=== PATIENT | female | born 1970 | race Caucasian/White ===

== ENCOUNTER 2017-01-11 20:41 | Emergency (ER) | payer OTHER ==
[~2017-01-11 20:41] MED LIST: ACTO15TA OR; GLIM4TAB PO; IBUP600T OR; MELO15TA4 PO; VICO5TAB OR; VICO5TAB PO; Victoza SC
[2017-01-11] MEDS ORDERED: KETOROLAC 30 MG/ML VIAL (J1885) As Ordered ONE (21:25)
[2017-01-11] MEDS ORDERED: AMOXICILLIN 500 MG CAP As Ordered ONE (21:25)
[2017-01-11] MEDS ORDERED: MECLIZINE 12.5 MG TAB As Ordered ONE (21:25)
--- NOTE | 2017-01-11 22:41 | EDDOCDS ---
Physician Documentation [facility] Name: Elvira Newell Age: 46 yrs Sex: Female : 1970 Arrival Date: 01/11/2017 Time: 20:41 Bed PD Private MD: Anton Boss Disposition: 01/11/17 22:26 Discharged to Home/Self Care. Impression: Periapical abscess without sinus, Headache, Dizziness and giddiness. - Condition is Stable. - Discharge Instructions: Dental Abscess, Dizziness. - Prescriptions for Amoxicillin 500 mg Oral Capsule - take 1 capsule by ORAL route every 8 hours for 10 days; 30 tablet. ketorolac 10 mg Oral Tablet - take 1 tablet by ORAL route every 6 hours As needed MDD- 40mg. Up to 5 days total use.; 20 tablet. - Medication Reconciliation, Local Pharmacy Hours form. - Follow up: Your, Dentist; When: 1 - 2 days; Reason: Recheck today's complaints, Continuance of care. - Problem is new. - Symptoms have improved. - Notes: STOP MOTRIN, USE TORADOL AND AMOXICILLIN, YOU MAY ALSO USE TYLENOL, FOLLOW UP WITH YOUR DENTIST, RETURN TO THE ER IF THE SYMPTOMS WORSEN OR BECOME CONCERNING Historical: - Allergies: no known allergies; - Home Meds: 1. glimepiride 4 mg Oral tab 2 tab once daily (Last dose: 01/09/2017) 2. Ibuprofen Oral Unknown every 4 hours (Last dose: 01/11/2017 12:00) 3. Invokana 100 mg oral tab 1 tab once daily (Last dose: 01/09/2017) 4. phenermine 37.5 mg daily (Last dose: 01/09/2017) - PMHx: Diabetes - NIDDM: controlled; - PSHx: Hysterectomy; Appendectomy; Hemorrhoidectomy; Oophorectomy- Right; laproscopy; - Social history: Smoking status: Patient uses tobacco products, current some day smoker. Patient/guardian denies using alcohol, street drugs, No barriers to communication noted, The patient speaks fluent Bengali, Speaks appropriately for age. - Family history: No immediate family members are acutely ill. - : The pt / caregiver states he / she is not on anticoagulants. Home medication list is obtained from the patient. - Exposure Risk Screening:: None identified. 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 6 in. (167.64 cm); Pain 10/10; 21:16 BP 154 / 90 LA Sitting (man/lg); mcp 22:35 BP 151 / 80; Pulse 86; Resp 18; Pulse Ox 97% on R/A; Pain 8/10; nn1 22:36 Temp 97.8(O); nn1 20:42 Body Mass Index 33.73 (94.80 kg, 167.64 cm) sew MDM: 21:09 Accucheck ordered. ck7 21:13 Recheck B/P ordered. ck7 21:21 ketorolac 60 mg IM once ordered. ck7 21:21 Meclizine 25 mg PO once ordered. ck7 21:21 Amoxicillin 500 mg PO once ordered. ck7 21:21 Fingerstick Blood Sugar Ordered. EDMS 21:26 Fingerstick Blood Sugar Reviewed. ck7 21:50 Financial registration complete. zo 22:02 [facility] Payment Agreement was scanned into [employer] and attached to record. zo Point of Care Testing: Blood Glucose: 21:14 Blood Glucose: 170 mg/dL; mcp Ranges: Administered Medications: 21:31 Drug: ketorolac 60 mg [ketorolac 30 mg/mL (1 mL) injection solution (2 mL)] Route: IM; mcp Site: right deltoid; 21:31 Drug: Meclizine 25 mg [meclizine 12.5 mg tablet (2 tabs)] Route: PO; mcp 21:31 Drug: Amoxicillin 500 mg [amoxicillin 500 mg capsule (1 caps)] Route: PO; mcp Signatures: Dispatcher [employer] EDMS Cass Mazariegos Christopher, SHANNON-C RPA-Cck7 Jasmyn Gómez RN RN Erasmo Carmichael RN RN nn1 Violeta Mccormick RN [facility] The chart was reviewed and I authenticate all verbal orders and agree with the evaluation and treatment provided.Attachments: 22:02 [facility] [place] Agreement zo MTDD
--- NOTE | 2017-01-11 22:41 | EDDOCDS ---
Nurse's Notes [facility] Name: Elvira Newell Age: 46 yrs Sex: Female : 1970 Arrival Date: 01/11/2017 Time: 20:41 Bed PD Private MD: Anton Boss Diagnosis: Periapical abscess without sinus;Headache;Dizziness and giddiness Presentation: 01/11 20:46 Presenting complaint: Patient states: left lower molar pain since last night with ttb facial swelling. Adult Sepsis Screening: The patient does not have new or worsening altered mentation. Patient's respiratory rate is less than 22. Systolic blood pressure is greater than 100. Patient has a qSOFA score of 0- Negative Sepsis Screen. Suicide/Homicide risk assessment- the patient denies having any suicidal and/or homicidal ideations and does not present with any other emotional, behavioral or mental health complaints. Status: Patient is not a food service technician or dependent. Transition of care: patient was not received from another setting of care. 20:46 Acuity: ANDREWS Level 5 ttb 20:46 Method Of Arrival: Walkin/Carried/Asstd ttb Triage Assessment: 20:48 General: Appears in no apparent distress, uncomfortable, well nourished, Behavior is ttb appropriate for age, cooperative, flat, pleasant. Pain: Location: left mouth 10/10 into ear. HIV screening NA for this visit Offered previously. Neurological: Reports dizziness. EENT: Reports pain since yesterday. Respiratory: Airway is patent. GI: Reports nausea. Derm: Skin is normal, Swollen area noted on left cheek. 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 glimepiride 4 mg Oral tab 2 tab once daily (Last dose: 01/09/2017) 2. Ibuprofen Oral Unknown every 4 hours (Last dose: 01/11/2017 12:00) 3. Invokana 100 mg oral tab 1 tab once daily (Last dose: 01/09/2017) 4. phenermine 37.5 mg daily (Last dose: 01/09/2017) - PMHx: Diabetes - NIDDM: controlled; - PSHx: Hysterectomy; Appendectomy; Hemorrhoidectomy; Oophorectomy- Right; laproscopy; - Social history: Smoking status: Patient uses tobacco products, current some day smoker. Patient/guardian denies using alcohol, street drugs, No barriers to communication noted, The patient speaks fluent Latvian, Speaks appropriately for age. - Family history: No immediate family members are acutely ill. - : The pt / caregiver states he / she is not on anticoagulants. Home medication list is obtained from the patient. - Exposure Risk Screening:: None identified. Screenin:32 Screening information is obtained from the patient. Fall risk: No risks identified. mcp Assistance ADL's: requires no assistance with activities of daily living. Abuse/DV Screen: The patient / caregiver reports he/she is: not in a situation that causes fear, pain or injury. Nutritional screening: No deficits noted. Advance Directives: Currently, there is no health care proxy. There is no active DNR order. There is no Power of Technology Architect. home support is adequate. Assessment: 21:31 General: Appears uncomfortable, Behavior is cooperative. Pain: Location: left ear and mcp mouth Pain currently is 10 out of 10 on a pain scale. Neurological: Reports dizziness, headache. EENT: Reports pain in mouth Pain is 10 out of 10 on a pain scale. Respiratory: Airway is patent Respiratory effort is even, unlabored. Derm: Skin is pink, warm & dry. 22:09 General: Patient reports dizziness has improved, continues to have headache. Patient nn1 lying on stretcher with lights off. Provider notified of patients condition.. 22:26 General: States dizziness gone but headache remains. mcp 22:35 General: Appears in no apparent distress. Pain: Location: face Pain currently is 8 out nn1 of 10 on a pain scale. Respiratory: Airway is patent Respiratory effort is even, unlabored. Derm: Skin is pink, warm & dry. Vital Signs: 20:42 BP 172 / 97; Pulse 100; Resp 16; Temp 98.7(O); Pulse Ox 100% on R/A; Weight 94.8 kg; sew Height 5 ft. 6 in. (167.64 cm); Pain 10/10; 21:16 BP 154 / 90 LA Sitting (man/lg); mcp 22:35 BP 151 / 80; Pulse 86; Resp 18; Pulse Ox 97% on R/A; Pain 8/10; nn1 22:36 Temp 97.8(O); nn1 20:42 Body Mass Index 33.73 (94.80 kg, 167.64 cm) sew Vitals: 20:42 Log In Time: January 11, 2017 at 20:40. sew ED Course: 20:42 Patient visited by Adwoa Coleman. sew 20:42 Anton Boss is Private Physician. sew 20:42 Patient moved to Waiting sew 20:43 Patient visited by Adwoa Coleman. sew 20:43 Patient moved to Pre RCE sew 20:46 Triage Initiated ttb 20:49 Patient moved to Triage 2 ttb 20:51 Miguel Angel Brar RPA-C is PHCP. ck7 20:51 Logan Monson DO is Attending Physician. ck7 20:52 Patient visited by Miguel Angel Brar RPA-C. ck7 21:20 Patient moved to PD2 / rs6 21:26 Patient visited by Miguel Angel Brar RPA-C. ck7 21:32 The patient / caregiver is instructed regarding the plan of care and ED course. Patient mcp has correct armband on for positive identification. Bed in low position. Call light in reach. Adult w/ patient. 21:33 Patient visited by Violeta Mccormick RN. mcp 22:02 [facility] Payment Agreement was scanned into [employer] and attached to record. zo 22:09 Patient visited by Erasmo Parkinson RN. nn1 22:25 Julio Hsieht is Referral Physician. ck7 22:35 No IV's were initiated during this patient's visit. No procedures done that require nn1 assistance. Administered Medications: 21:31 Drug: ketorolac 60 mg [ketorolac 30 mg/mL (1 mL) injection solution (2 mL)] Route: IM; mcp Site: right deltoid; 21:31 Drug: Meclizine 25 mg [meclizine 12.5 mg tablet (2 tabs)] Route: PO; mcp 21:31 Drug: Amoxicillin 500 mg [amoxicillin 500 mg capsule (1 caps)] Route: PO; [facility] Point of Care Testing: Blood Glucose: 21:14 Blood Glucose: 170 mg/dL; [facility] Ranges: Order Results: Lab Order: Fingerstick Blood Sugar; SPEC'M 01/11/17 21:13 Test: BEDSIDE GLUCOSE; Value: 170; Range: 70-105; Abnormal: Above high normal; Units: MG/DL; Status: F Outcome: 22:26 Discharge ordered by Provider. ck7 22:38 Discharge Assessment: Patient awake, alert and oriented x 3. No cognitive and/or nn1 functional deficits noted. Patient verbalized understanding of disposition instructions. patient administered narcotics - no. The following High Risk Discharge criteria are identified: None. Discharged to home ambulatory, with family. Condition: stable Condition: improved. No special radiology studies were completed. Property :Personal belongings accompany Pt. 22:39 Patient left the ED. nn1 Signatures: Violeta Mccormick, RN RN Cass Ware Christopher, RPA-C RPA-Cck7 Adwoa Coleman Teresa RN RN Desiree Ortiz, MALATHI FENCE MAKING MACHINE OPERATOR rs6 Erasmo ParkinsonRN RN nn1 JOSE LUIS
--- NOTE | 2017-01-13 23:41 | EDDOCDS ---
Physician Documentation [facility] Name: Elvira Newell Age: 46 yrs Sex: Female : 1970 Arrival Date: 01/11/2017 Time: 20:41 Bed PD Private MD: Anton Boss Disposition: 01/11/17 22:26 Discharged to Home/Self Care. Impression: Periapical abscess without sinus, Headache, Dizziness and giddiness. - Condition is Stable. - Discharge Instructions: Dental Abscess, Dizziness. - Prescriptions for Amoxicillin 500 mg Oral Capsule - take 1 capsule by ORAL route every 8 hours for 10 days; 30 tablet. ketorolac 10 mg Oral Tablet - take 1 tablet by ORAL route every 6 hours As needed MDD- 40mg. Up to 5 days total use.; 20 tablet. - Medication Reconciliation, Local Pharmacy Hours form. - Follow up: Your, Dentist; When: 1 - 2 days; Reason: Recheck today's complaints, Continuance of care. - Problem is new. - Symptoms have improved. - Notes: STOP MOTRIN, USE TORADOL AND AMOXICILLIN, YOU MAY ALSO USE TYLENOL, FOLLOW UP WITH YOUR DENTIST, RETURN TO THE ER IF THE SYMPTOMS WORSEN OR BECOME CONCERNING Historical: - Allergies: no known allergies; - Home Meds: 1. glimepiride 4 mg Oral tab 2 tab once daily (Last dose: 01/09/2017) 2. Ibuprofen Oral Unknown every 4 hours (Last dose: 01/11/2017 12:00) 3. Invokana 100 mg oral tab 1 tab once daily (Last dose: 01/09/2017) 4. phenermine 37.5 mg daily (Last dose: 01/09/2017) - PMHx: Diabetes - NIDDM: controlled; - PSHx: Hysterectomy; Appendectomy; Hemorrhoidectomy; Oophorectomy- Right; laproscopy; - Social history: Smoking status: Patient uses tobacco products, current some day smoker. Patient/guardian denies using alcohol, street drugs, No barriers to communication noted, The patient speaks fluent Albanian, Speaks appropriately for age. - Family history: No immediate family members are acutely ill. - : The pt / caregiver states he / she is not on anticoagulants. Home medication list is obtained from the patient. - Exposure Risk Screening:: None identified. 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 6 in. (167.64 cm); Pain 10/10; 21:16 BP 154 / 90 LA Sitting (man/lg); mcp 22:35 BP 151 / 80; Pulse 86; Resp 18; Pulse Ox 97% on R/A; Pain 8/10; nn1 22:36 Temp 97.8(O); nn1 20:42 Body Mass Index 33.73 (94.80 kg, 167.64 cm) sew MDM: 21:09 Accucheck ordered. ck7 21:13 Recheck B/P ordered. ck7 21:21 ketorolac 60 mg IM once ordered. ck7 21:21 Meclizine 25 mg PO once ordered. ck7 21:21 Amoxicillin 500 mg PO once ordered. ck7 21:21 Fingerstick Blood Sugar Ordered. EDMS 21:26 Fingerstick Blood Sugar Reviewed. ck7 21:50 Financial registration complete. zo 22:02 [facility] Payment Agreement was scanned into [employer] and attached to record. zo 01/12 11:01 T-Sheet-- Draft Copy was scanned into [employer] and attached to record. Point of Care Testing: Blood Glucose: 01/11 21:14 Blood Glucose: 170 mg/dL; mcp Ranges: Administered Medications: 21:31 Drug: ketorolac 60 mg [ketorolac 30 mg/mL (1 mL) injection solution (2 mL)] Route: IM; mcp Site: right deltoid; 21:31 Drug: Meclizine 25 mg [meclizine 12.5 mg tablet (2 tabs)] Route: PO; mcp 21:31 Drug: Amoxicillin 500 mg [amoxicillin 500 mg capsule (1 caps)] Route: PO; [facility] Signatures: Dispatcher [employer] EDMS Fe Hahn, Reg Reg [place] Christopher, RPA-C RPA-Cck7 Jasmyn Gómez RN RN ttb Erasmo Parkinson RN RN nn1 Violeta Mccormick RN [facility] The chart was reviewed and I authenticate all verbal orders and agree with the evaluation and treatment provided.Attachments: 22:02 [facility] Payment Agreement zo 01/12 11:01 T-Sheet-- Draft Copy gb Chart Complete MTDD
--- NOTE | 2017-01-13 23:41 | EDDOCDS ---
Physician Documentation [facility] Name: Elvira Newell Age: 46 yrs Sex: Female : 1970 Arrival Date: 01/11/2017 Time: 20:41 Bed PD Private MD: Anton Boss Disposition: 01/11/17 22:26 Discharged to Home/Self Care. Impression: Periapical abscess without sinus, Headache, Dizziness and giddiness. - Condition is Stable. - Discharge Instructions: Dental Abscess, Dizziness. - Prescriptions for Amoxicillin 500 mg Oral Capsule - take 1 capsule by ORAL route every 8 hours for 10 days; 30 tablet. ketorolac 10 mg Oral Tablet - take 1 tablet by ORAL route every 6 hours As needed MDD- 40mg. Up to 5 days total use.; 20 tablet. - Medication Reconciliation, Local Pharmacy Hours form. - Follow up: Your, Dentist; When: 1 - 2 days; Reason: Recheck today's complaints, Continuance of care. - Problem is new. - Symptoms have improved. - Notes: STOP MOTRIN, USE TORADOL AND AMOXICILLIN, YOU MAY ALSO USE TYLENOL, FOLLOW UP WITH YOUR DENTIST, RETURN TO THE ER IF THE SYMPTOMS WORSEN OR BECOME CONCERNING Historical: - Allergies: no known allergies; - Home Meds: 1. glimepiride 4 mg Oral tab 2 tab once daily (Last dose: 01/09/2017) 2. Ibuprofen Oral Unknown every 4 hours (Last dose: 01/11/2017 12:00) 3. Invokana 100 mg oral tab 1 tab once daily (Last dose: 01/09/2017) 4. phenermine 37.5 mg daily (Last dose: 01/09/2017) - PMHx: Diabetes - NIDDM: controlled; - PSHx: Hysterectomy; Appendectomy; Hemorrhoidectomy; Oophorectomy- Right; laproscopy; - Social history: Smoking status: Patient uses tobacco products, current some day smoker. Patient/guardian denies using alcohol, street drugs, No barriers to communication noted, The patient speaks fluent Greek, Speaks appropriately for age. - Family history: No immediate family members are acutely ill. - : The pt / caregiver states he / she is not on anticoagulants. Home medication list is obtained from the patient. - Exposure Risk Screening:: None identified. 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 6 in. (167.64 cm); Pain 10/10; 21:16 BP 154 / 90 LA Sitting (man/lg); mcp 22:35 BP 151 / 80; Pulse 86; Resp 18; Pulse Ox 97% on R/A; Pain 8/10; nn1 22:36 Temp 97.8(O); nn1 20:42 Body Mass Index 33.73 (94.80 kg, 167.64 cm) sew MDM: 21:09 Accucheck ordered. ck7 21:13 Recheck B/P ordered. ck7 21:21 ketorolac 60 mg IM once ordered. ck7 21:21 Meclizine 25 mg PO once ordered. ck7 21:21 Amoxicillin 500 mg PO once ordered. ck7 21:21 Fingerstick Blood Sugar Ordered. EDMS 21:26 Fingerstick Blood Sugar Reviewed. ck7 21:50 Financial registration complete. zo 22:02 [facility] Payment Agreement was scanned into [employer] and attached to record. zo 01/12 11:01 T-Sheet-- Draft Copy was scanned into [employer] and attached to record. Point of Care Testing: Blood Glucose: 01/11 21:14 Blood Glucose: 170 mg/dL; mcp Ranges: Administered Medications: 21:31 Drug: ketorolac 60 mg [ketorolac 30 mg/mL (1 mL) injection solution (2 mL)] Route: IM; mcp Site: right deltoid; 21:31 Drug: Meclizine 25 mg [meclizine 12.5 mg tablet (2 tabs)] Route: PO; mcp 21:31 Drug: Amoxicillin 500 mg [amoxicillin 500 mg capsule (1 caps)] Route: PO; [facility] Signatures: Dispatcher [employer] EDMS Fe Hahn, Reg Reg [place] Christopher, RPA-C RPA-Cck7 Jasmyn Gómez RN RN ttb Erasmo Parkinson RN RN nn1 Violeta Mccormick RN [facility] The chart was reviewed and I authenticate all verbal orders and agree with the evaluation and treatment provided.Attachments: 22:02 [facility] Payment Agreement zo 01/12 11:01 T-Sheet-- Draft Copy gb Chart Complete MTDD
--- NOTE | 2017-01-13 23:41 | EDDOCDS ---
Nurse's Notes [facility] Name: Elvira Newell Age: 46 yrs Sex: Female : 1970 Arrival Date: 01/11/2017 Time: 20:41 Bed PD Private MD: Anton Bsos Diagnosis: Periapical abscess without sinus;Headache;Dizziness and giddiness Presentation: 01/11 20:46 Presenting complaint: Patient states: left lower molar pain since last night with ttb facial swelling. Adult Sepsis Screening: The patient does not have new or worsening altered mentation. Patient's respiratory rate is less than 22. Systolic blood pressure is greater than 100. Patient has a qSOFA score of 0- Negative Sepsis Screen. Suicide/Homicide risk assessment- the patient denies having any suicidal and/or homicidal ideations and does not present with any other emotional, behavioral or mental health complaints. 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 Transition of care: patient was not received from another setting of care. 20:46 Acuity: ANDREWS Level 5 ttb 20:46 Method Of Arrival: Walkin/Carried/Asstd ttb Triage Assessment: 20:48 General: Appears in no apparent distress, uncomfortable, well nourished, Behavior is ttb appropriate for age, cooperative, flat, pleasant. Pain: Location: left mouth 10/10 into ear. HIV screening NA for this visit Offered previously. Neurological: Reports dizziness. EENT: Reports pain since yesterday. Respiratory: Airway is patent. GI: Reports nausea. Derm: Skin is normal, Swollen area noted on left cheek. 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 glimepiride 4 mg Oral tab 2 tab once daily (Last dose: 01/09/2017) 2. Ibuprofen Oral Unknown every 4 hours (Last dose: 01/11/2017 12:00) 3. Invokana 100 mg oral tab 1 tab once daily (Last dose: 01/09/2017) 4. phenermine 37.5 mg daily (Last dose: 01/09/2017) - PMHx: Diabetes - NIDDM: controlled; - PSHx: Hysterectomy; Appendectomy; Hemorrhoidectomy; Oophorectomy- Right; laproscopy; - Social history: Smoking status: Patient uses tobacco products, current some day smoker. Patient/guardian denies using alcohol, street drugs, No barriers to communication noted, The patient speaks fluent Maori, Speaks appropriately for age. - Family history: No immediate family members are acutely ill. - : The pt / caregiver states he / she is not on anticoagulants. Home medication list is obtained from the patient. - Exposure Risk Screening:: None identified. Screenin:32 Screening information is obtained from the patient. Fall risk: No risks identified. mcp Assistance ADL's: requires no assistance with activities of daily living. Abuse/DV Screen: The patient / caregiver reports he/she is: not in a situation that causes fear, pain or injury. Nutritional screening: No deficits noted. Advance Directives: Currently, there is no health care proxy. There is no active DNR order. There is no Power of Stemhole Borer. home support is adequate. Assessment: 21:31 General: Appears uncomfortable, Behavior is cooperative. Pain: Location: left ear and mcp mouth Pain currently is 10 out of 10 on a pain scale. Neurological: Reports dizziness, headache. EENT: Reports pain in mouth Pain is 10 out of 10 on a pain scale. Respiratory: Airway is patent Respiratory effort is even, unlabored. Derm: Skin is pink, warm & dry. 22:09 General: Patient reports dizziness has improved, continues to have headache. Patient nn1 lying on stretcher with lights off. Provider notified of patients condition.. 22:26 General: States dizziness gone but headache remains. mcp 22:35 General: Appears in no apparent distress. Pain: Location: face Pain currently is 8 out nn1 of 10 on a pain scale. Respiratory: Airway is patent Respiratory effort is even, unlabored. Derm: Skin is pink, warm & dry. Vital Signs: 20:42 BP 172 / 97; Pulse 100; Resp 16; Temp 98.7(O); Pulse Ox 100% on R/A; Weight 94.8 kg; sew Height 5 ft. 6 in. (167.64 cm); Pain 10/10; 21:16 BP 154 / 90 LA Sitting (man/lg); mcp 22:35 BP 151 / 80; Pulse 86; Resp 18; Pulse Ox 97% on R/A; Pain 8/10; nn1 22:36 Temp 97.8(O); nn1 20:42 Body Mass Index 33.73 (94.80 kg, 167.64 cm) sew Vitals: 20:42 Log In Time: January 11, 2017 at 20:40. sew ED Course: 20:42 Patient visited by Adwoa Coleman. sew 20:42 Anton Boss is Private Physician. sew 20:42 Patient moved to Waiting sew 20:43 Patient visited by Adwoa Coleman. sew 20:43 Patient moved to Pre RCE sew 20:46 Triage Initiated ttb 20:49 Patient moved to Triage 2 ttb 20:51 Miguel Angel Brar RPA-C is PHCP. ck7 20:51 Logan Monson DO is Attending Physician. ck7 20:52 Patient visited by Miguel Angel Brar RPA-C. ck7 21:20 Patient moved to PD2 / rs6 21:26 Patient visited by Miguel Angel Brar RPA-C. ck7 21:32 The patient / caregiver is instructed regarding the plan of care and ED course. Patient mcp has correct armband on for positive identification. Bed in low position. Call light in reach. Adult w/ patient. 21:33 Patient visited by Violeta Mccormick RN. mcp 22:02 [facility] Payment Agreement was scanned into [employer] and attached to record. zo 22:09 Patient visited by Erasmo Parkinson RN. nn1 22:25 Julio Hsieht is Referral Physician. ck7 22:35 No IV's were initiated during this patient's visit. No procedures done that require nn1 assistance. 01/12 11:01 T-Sheet-- Draft Copy was scanned into [employer] and attached to record. gb Administered Medications: 01/11 21:31 Drug: ketorolac 60 mg [ketorolac 30 mg/mL (1 mL) injection solution (2 mL)] Route: IM; [facility] Site: right deltoid; 21:31 Drug: Meclizine 25 mg [meclizine 12.5 mg tablet (2 tabs)] Route: PO; mcp 21:31 Drug: Amoxicillin 500 mg [amoxicillin 500 mg capsule (1 caps)] Route: PO; [facility] Point of Care Testing: Blood Glucose: 21:14 Blood Glucose: 170 mg/dL; [facility] Ranges: Order Results: Lab Order: Fingerstick Blood Sugar; SPEC'M 01/11/17 21:13 Test: BEDSIDE GLUCOSE; Value: 170; Range: 70-105; Abnormal: Above high normal; Units: MG/DL; Status: F Outcome: 22:26 Discharge ordered by Provider. ck7 22:38 Discharge Assessment: Patient awake, alert and oriented x 3. No cognitive and/or nn1 functional deficits noted. Patient verbalized understanding of disposition instructions. patient administered narcotics - no. The following High Risk Discharge criteria are identified: None. Discharged to home ambulatory, with family. Condition: stable Condition: improved. No special radiology studies were completed. Property :Personal belongings accompany Pt. 22:39 Patient left the ED. nn1 Signatures: Violeta Mccormick, RN RN Fe Armenta, Cass Schultz Christopher, RPA-C RPA-Cck7 Adwoa Coleman Teresa, RN RN Desiree Ortiz, MALATHI PERMACULTURE DESIGNER rs6 Erasmo ParkinsonRN RN nn1 Chart Complete MTDD
== END 2017-01-11 22:39 | disposition home or self-care (01) ==
LOC: M ED 20:41
DX: K04.7 Periapical abscess without sinus (principal); E11.9 Type 2 diabetes mellitus without complications; Z72.0 Tobacco use; Z79.899 Other long term (current) drug therapy
CPT/HCPCS: 96372; 99283; J1885

== ENCOUNTER → 2017-04-04 | Outpatient (CLI) | payer OTHER ==
[2017-04-04 19:38] LABS: ALBUMIN 3.8 GM/DL (3.2-5.2); ALBUMIN/GLOBULIN RATIO 0.97 (1.00-1.93); ALKALINE PHOSPHATASE 62 U/L (45-117); ALT/SGPT 31 U/L (12-78); ANION GAP 9 MEQ/L (8-16); AST/SGOT 12 U/L (15-37); BILIRUBIN,TOTAL 0.2 MG/DL (0.2-1.0); BLOOD UREA NITROGEN 12 MG/DL (7-18); CARBON DIOXIDE LEVEL 29 MEQ/L (21-32); CHLORIDE LEVEL 102 MEQ/L (98-107); GLOMERULAR FILTRATION RATE > 60.0 (>58); GLUCOSE, FASTING 126 MG/DL (70-105); POTASSIUM SERUM 4.3 MEQ/L (3.5-5.1); SODIUM LEVEL 140 MEQ/L (136-145); TOTAL PROTEIN 7.7 GM/DL (6.4-8.2)
== END ==
LOC: M WUC 16:15
PROVIDERS: ATTEND Nurse Practitioner Family
DX: E11.9 Type 2 diabetes mellitus without complications (principal); E66.09 Other obesity due to excess calories

== ENCOUNTER → 2017-09-24 | Outpatient (CLI) | payer OTHER ==
[2017-09-24 19:42] LABS: BASO # 0.1 10^3/uL (0.0-0.2); BASO % 0.6 % (0.0-1.0); EOS # 0.1 10^3/uL (0.0-0.50); EOS % 1.4 % (0.0-3.0); IMMATURE GRANULOCYTE % 0.2 % (0-0); LYMPH # 3.4 10^3/uL (1.5-4.5); LYMPH % 34.2 % (24.0-44.0); MEAN CORPUSCULAR HEMOGLOBIN 28.8 pg (27.0-33.0); MEAN CORPUSCULAR HGB CONC 32.1 g/dl (32.0-36.5); MEAN CORPUSCULAR VOLUME 89.7 fl (80.0-96.0); MONO # 0.7 10^3/uL (0.0-0.8); MONO % 6.7 % (0.0-5.0); NEUTROPHILS # 5.6 10^3/uL (1.8-7.7); NEUTROPHILS % 56.9 % (36.0-66.0); PLATELET COUNT, AUTOMATED 264 10^3/uL (150-450); RED CELL DISTRIBUTION WIDTH 13.4 % (11.5-14.5); WHITE BLOOD COUNT 9.8 10^3/uL (4.0-10.0)
[2017-09-24 20:00] LABS: ALBUMIN/GLOBULIN RATIO 1.08 (1.00-1.93); ALKALINE PHOSPHATASE 57 U/L (45-117); ALT/SGPT 33 U/L (12-78); ANION GAP 9 MEQ/L (8-16); AST/SGOT 12 U/L (15-37); BILIRUBIN,TOTAL 0.3 MG/DL (0.2-1.0); BLOOD UREA NITROGEN 15 MG/DL (7-18); CALCIUM LEVEL 9.2 MG/DL (8.5-10.1); CARBON DIOXIDE LEVEL 28 MEQ/L (21-32); CHLORIDE LEVEL 103 MEQ/L (98-107); CREATININE FOR GFR 0.69 MG/DL (0.55-1.02); FREE T4 0.98 NG/DL (0.76-1.46); GLOMERULAR FILTRATION RATE > 60.0 (>58); GLUCOSE, FASTING 72 MG/DL (70-105); POTASSIUM SERUM 4.4 MEQ/L (3.5-5.1); SODIUM LEVEL 140 MEQ/L (136-145); TOTAL PROTEIN 7.7 GM/DL (6.4-8.2)
== END ==
LOC: M WUC 15:40
PROVIDERS: ATTEND Nurse Practitioner Family
DX: E11.9 Type 2 diabetes mellitus without complications (principal); E66.09 Other obesity due to excess calories

== ENCOUNTER 2017-12-19 08:04 | Day surgery (SDC) | payer OTHER ==
[2017-12-19] MEDS ORDERED: NS 1,000 ML IV (08:45)
[2017-12-19] MEDS ORDERED: PROPOFOL 500 MG/50 ML VIAL As Ordered (09:31)
[2017-12-19] MEDS ORDERED: LIDOCAINE 2% INJ 100 MG/5 ML SYRINGE As Ordered (09:31)
== END 2017-12-19 10:15 | disposition home or self-care (01) ==
LOC: M OPP 08:04
DX: R10.32 Left lower quadrant pain (principal); K62.5 Hemorrhage of anus and rectum; D12.5 Benign neoplasm of sigmoid colon; D12.2 Benign neoplasm of ascending colon; K64.8 Other hemorrhoids; R19.4 Change in bowel habit; E11.9 Type 2 diabetes mellitus without complications; G47.30 Sleep apnea, unspecified; M19.90 Unspecified osteoarthritis, unspecified site; Z79.899 Other long term (current) drug therapy; Z90.49 Acquired absence of other specified parts of digestive tract; Z90.89 Acquired absence of other organs; Z90.722 Acquired absence of ovaries, bilateral; Z87.19 Personal history of other diseases of the digestive system; Z87.891 Personal history of nicotine dependence
CPT/HCPCS: 45385

== ENCOUNTER → 2018-02-19 | Outpatient (CLI) | payer OTHER ==
[2018-02-19 16:45] LABS: ESTIMATED AVERAGE GLUCOSE 163 MG/DL (60-110); HEMOGLOBIN A1c 7.3 %
[2018-02-19 17:07] LABS: ERYTHROCYTE SEDIMENTATION RATE 18 mm/hr (0-20)
[2018-02-19 17:13] LABS: ALBUMIN 3.9 GM/DL (3.2-5.2); ALBUMIN/GLOBULIN RATIO 0.98 (1.00-1.93); ALKALINE PHOSPHATASE 61 U/L (45-117); ALT/SGPT 26 U/L (12-78); ANION GAP 7 MEQ/L (8-16); AST/SGOT 13 U/L (7-37); BILIRUBIN,TOTAL 0.2 MG/DL (0.2-1.0); BLOOD UREA NITROGEN 15 MG/DL (7-18); CALCIUM LEVEL 8.8 MG/DL (8.5-10.1); CARBON DIOXIDE LEVEL 28 MEQ/L (21-32); CHLORIDE LEVEL 106 MEQ/L (98-107); CREATININE FOR GFR 0.67 MG/DL (0.55-1.30); GLOMERULAR FILTRATION RATE > 60.0 (>58); GLUCOSE, FASTING 81 MG/DL (70-100); POTASSIUM SERUM 4.3 MEQ/L (3.5-5.1); SODIUM LEVEL 141 MEQ/L (136-145); TOTAL PROTEIN 7.9 GM/DL (6.4-8.2)
[2018-02-21 14:15] LABS: ANTINUCLEAR ANTIBODIES DIRECT Negative (Negative)
== END ==
LOC: M WUC 14:10
DX: M15.8 Other polyosteoarthritis (principal); E11.9 Type 2 diabetes mellitus without complications
CPT/HCPCS: 80053

== ENCOUNTER → 2018-06-23 | Outpatient (CLI) | payer OTHER | LOC: M WUC 18:42 | DX: M51.34 Other intervertebral disc degeneration, thoracic region (principal); M51.36 Other intervertebral disc degeneration, lumbar region | CPT/HCPCS: 72072 ==

== ENCOUNTER → 2019-11-20 | Outpatient (CLI) | payer OTHER ==
[~2019-11-20] MED LIST changes: -GLIM4TAB PO; +GLIM4TAB3 PO; +INVO100T PO; +MELO15TA28 PO; -MELO15TA4 PO; +PHEN30CA2 PO
--- NOTE | 2019-11-20 18:32 | REP ---
HISTORY: Trauma. COMPARISON: None. Plain film examination of the cervical spine cannot rule out a fracture. Vertebral body height and alignment is within normal limits. The disc spaces are symmetric and well maintained. The intervertebral foramina are within normal limits bilaterally. The facet joints are well aligned bilaterally. IMPRESSION: Cervical spine series within normal limits for the patient's age. A plain film examination cannot rule out a cervical spine fracture. CT is recommended. Electronically Signed by Jordy Estrella DO 11/20/2019 06:56 P
--- NOTE | 2019-11-20 18:34 | REP ---
HISTORY: Pain after trauma. Assess for fracture. The exam is limited by technique and the patient's body habitus. There is disc space narrowing moderately at every level. There is syndesmophyte formation seen bilaterally involving the lower thoracic levels and on the right throughout ending at T10-11. Vertebral body height and alignment is within normal limits. The pedicles appear to be intact bilaterally. IMPRESSION: Chronic changes as described above. There is no plain radiographic evidence of an acute fracture. Electronically Signed by Jordy Estrella DO 11/20/2019 06:56 P
--- NOTE | 2019-11-20 18:57 | REP ---
HISTORY: Pain after trauma. COMPARISON: A limited three view examination of 06/23/2018. Vertebral body height and alignment is unchanged. Minimal partial syndesmophyte formation is seen at L3-4, status quo. The pedicles are intact bilaterally. There is no evidence of spondylolysis or spondylolisthesis. There is mild posterior disc space narrowing at every level, status quo. IMPRESSION: Mild chronic changes as described above. Electronically Signed by Jordy Estrella DO 11/20/2019 07:34 P
== END ==
LOC: M WUC 16:52
PROVIDERS: ATTEND Physician Assistant
DX: M25.78 Osteophyte, vertebrae (principal); M48.061 Spinal stenosis, lumbar region without neurogenic claudication; M48.04 Spinal stenosis, thoracic region; S30.0XXA Contusion of lower back and pelvis, initial encounter; S16.1XXA Strain of muscle, fascia and tendon at neck level, initial encounter; S20.221A Contusion of right back wall of thorax, initial encounter; Y92.9 Unspecified place or not applicable; Y93.9 Activity, unspecified; Y99.9 Unspecified external cause status

== ENCOUNTER 2020-07-13 02:30 | Emergency (ER) | payer OTHER ==
[~2020-07-13 02:30] MED LIST changes: -GLIM4TAB3 PO; +GLIM4TAB5 PO
[2020-07-14] MEDS ORDERED: KETOROLAC 60MG 2ML VIAL As Ordered ONE (04:11)
[2020-07-14] MEDS ORDERED: KETOROLAC 60MG 2ML VIAL ONE (04:11)
[2020-07-14] MEDS ORDERED: AUGMENTIN 875 MG TAB As Ordered ONE (04:11)
[2020-07-14] MEDS ORDERED: AUGMENTIN 875 MG TAB ONE (04:11)
[2020-07-14] MEDS ORDERED: ONDANSETRON 4 MG ORAL DISINTEGRATING TAB ONE (04:11)
[2020-07-14] MEDS ORDERED: OXYCODONE/APAP 5MG/325MG(BULK FOR ED) 1 TABLET ONE (04:11)
[2020-07-14] MEDS ORDERED: OXYCODONE/APAP 5MG/325MG(BULK FOR ED) 1 TABLET As Ordered ONE (04:12)
[2020-07-14] MEDS ORDERED: ONDANSETRON 4 MG ORAL DISINTEGRATING TAB As Ordered ONE (04:12)
== END 2020-07-14 03:40 | disposition home or self-care (01) ==
LOC: M ED 02:30
DX: K08.89 Other specified disorders of teeth and supporting structures (principal); R68.84 Jaw pain; E11.9 Type 2 diabetes mellitus without complications; Z79.899 Other long term (current) drug therapy
CPT/HCPCS: 96372; 99283; J1885; Q0162

== ENCOUNTER → 2020-08-24 | Outpatient (REF) | payer OTHER ==
[2020-08-24 18:25] LABS: BASO # 0.1 10^3/uL (0.0-0.2); BASO % 0.7 % (0.0-1.0); EOS # 0.1 10^3/uL (0.0-0.5); EOS % 1.3 % (0.0-3.0); HEMATOCRIT 42.9 % (36.0-47.0); HEMOGLOBIN 14.3 g/dl (12.0-15.5); LYMPH # 3.7 10^3/uL (1.5-5.0); LYMPH % 36.8 % (24.0-44.0); MEAN CORPUSCULAR HEMOGLOBIN 30.4 pg (27.0-33.0); MEAN CORPUSCULAR HGB CONC 33.3 g/dl (32.0-36.5); MEAN CORPUSCULAR VOLUME 91.3 fl (80.0-96.0); MONO # 0.6 10^3/uL (0.0-0.8); NEUTROPHILS # 5.5 10^3/uL (1.5-8.5); NEUTROPHILS % 54.9 % (36.0-66.0); PLATELET COUNT, AUTOMATED 254 10^3/uL (150-450); WHITE BLOOD COUNT 10.1 10^3/uL (4.0-10.0)
[2020-08-24 18:53] LABS: ALT/SGPT 48 U/L (12-78); BILIRUBIN,TOTAL 0.5 MG/DL (0.2-1.0); BLOOD UREA NITROGEN 10 MG/DL (7-18); CALCIUM LEVEL 9.3 MG/DL (8.5-10.1); CARBON DIOXIDE LEVEL 27 MEQ/L (21-32); CHLORIDE LEVEL 102 MEQ/L (98-107); CREATININE FOR GFR 0.76 MG/DL (0.55-1.30); FREE T4 0.97 NG/DL (0.76-1.46); GLOMERULAR FILTRATION RATE > 60.0 (>51); GLUCOSE, FASTING 295 MG/DL (70-100); SODIUM LEVEL 135 MEQ/L (136-145); THYROID STIMULATING HORMONE 0.538 uIU/ML (0.358-3.740); TOTAL PROTEIN 8.1 GM/DL (6.4-8.2)
[2020-08-24 18:55] LABS: TOTAL 25(OH) VITAMIN D 18.9 NG/ML (30.0-100.0)
== END ==
LOC: M LAB REF 17:31
PROVIDERS: ATTEND Physician Assistant
DX: R53.83 Other fatigue (principal); E11.9 Type 2 diabetes mellitus without complications

== ENCOUNTER → 2020-09-06 | Outpatient (REF) | payer OTHER ==
[2020-09-06 18:59] LABS: ALBUMIN 3.8 GM/DL (3.2-5.2); ALT/SGPT 50 U/L (12-78); BILIRUBIN,TOTAL 0.6 MG/DL (0.2-1.0); BLOOD UREA NITROGEN 12 MG/DL (7-18); CALCIUM LEVEL 9.1 MG/DL (8.5-10.1); CARBON DIOXIDE LEVEL 29 MEQ/L (21-32); CHLORIDE LEVEL 103 MEQ/L (98-107); CHOLESTEROL LEVEL 191 MG/DL (<200); CHOLESTEROL RISK RATIO 5.617 (<5); CREATININE FOR GFR 0.77 MG/DL (0.55-1.30); GLOMERULAR FILTRATION RATE > 60.0 (>51); GLUCOSE, FASTING 291 MG/DL (70-100); HDL CHOLESTEROL 34 MG/DL (>40); LDL CHOLESTEROL 103 MG/DL (<100); NON-HDL-C 157 MG/DL; SODIUM LEVEL 137 MEQ/L (136-145); TOTAL PROTEIN 7.6 GM/DL (6.4-8.2); TRIGLYCERIDES LEVEL 268 MG/DL (<150)
== END ==
LOC: M LAB REF 17:47
PROVIDERS: ATTEND Physician Assistant
DX: E11.9 Type 2 diabetes mellitus without complications (principal); Z68.34 Body mass index [BMI] 34.0-34.9, adult

== ENCOUNTER → 2020-09-29 | Outpatient (CLI) | payer OTHER ==
--- NOTE | 2020-09-29 14:16 | REPMRS ---
Patient History The patient states she has not had a clinical breast exam in over a year. No known family history of cancer. 3D TOMOSYNTHESIS WAS PERFORMED. [facility] lifetime risk for breast cancer is 7.5%. Volpara breast density b. Digital Woman Screen Mammo: September 29, 2020 - Exam #: [id number] Bilateral CC and MLO view(s) were taken. Technologist: Peace Jernoimo, Technologist Prior study comparison: January 04, 2015, bilateral digital mammo screening bilat, performed at [facility]. FINDINGS: There are scattered fibroglandular densities. There has been no change in the appearance of the mammogram from the prior studies. There is a mild amount of residual fibroglandular tissue which is fairly symmetric. There is no interval development of dominant mass, architectural distortion, or clustered microcalcification suggestive of malignancy. Assessment: BI-RADS/ACR category 1 mammogram. Negative Mammogram. Recommendation Routine screening mammogram in 1 year (for women over age 40). This mammogram was interpreted with the aid of an FDA-approved computer-aided dectection system. Electronically Signed By: Howard Osman MD 09/29/20 [id number]
== END ==
LOC: M WHC 12:57
PROVIDERS: ATTEND Physician Assistant
DX: Z12.31 Encounter for screening mammogram for malignant neoplasm of breast (principal)

== ENCOUNTER → 2020-10-13 | Outpatient (REF) | payer OTHER, MEDICAID ==
[2020-10-13 16:59] LABS: BLOOD UREA NITROGEN 13 MG/DL (7-18); CALCIUM LEVEL 9.6 MG/DL (8.5-10.1); CARBON DIOXIDE LEVEL 30 MEQ/L (21-32); CHLORIDE LEVEL 103 MEQ/L (98-107); GLOMERULAR FILTRATION RATE > 60.0 (>51); GLUCOSE, FASTING 218 MG/DL (70-100); POTASSIUM SERUM 4.4 MEQ/L (3.5-5.1); SODIUM LEVEL 140 MEQ/L (136-145)
== END ==
LOC: M LAB REF 16:28
PROVIDERS: ATTEND Physician Assistant
DX: E11.65 Type 2 diabetes mellitus with hyperglycemia (principal)

== ENCOUNTER → 2021-01-18 | Outpatient (CLI) | payer OTHER, MEDICAID ==
[2021-01-18 16:13] LABS: HEMATOCRIT 44.2 % (36.0-47.0); HEMOGLOBIN 14.3 g/dl (12.0-15.5); MEAN CORPUSCULAR HEMOGLOBIN 30.2 pg (27.0-33.0); MEAN CORPUSCULAR HGB CONC 32.4 g/dl (32.0-36.5); MEAN CORPUSCULAR VOLUME 93.4 fl (80.0-96.0); PLATELET COUNT, AUTOMATED 259 10^3/uL (150-450); RED BLOOD COUNT 4.73 10^6/uL (4.00-5.40); WHITE BLOOD COUNT 8.6 10^3/uL (4.0-10.0)
[2021-01-18 16:37] LABS: ALT/SGPT 58 U/L (12-78); BILIRUBIN,TOTAL 0.4 MG/DL (0.2-1.0); BLOOD UREA NITROGEN 12 MG/DL (7-18); CALCIUM LEVEL 10.1 MG/DL (8.5-10.1); CARBON DIOXIDE LEVEL 28 MEQ/L (21-32); CHLORIDE LEVEL 103 MEQ/L (98-107); CREATININE FOR GFR 0.86 MG/DL (0.55-1.30); GLOMERULAR FILTRATION RATE > 60.0 (>51); GLUCOSE, FASTING 255 MG/DL (70-100); POTASSIUM SERUM 4.7 MEQ/L (3.5-5.1); SODIUM LEVEL 139 MEQ/L (136-145); TOTAL PROTEIN 7.9 GM/DL (6.4-8.2)
[2021-01-18 16:51] LABS: MALB URINE SIEMENS 67.2 MG/L; MAU/CREAT RATIO 22.8 MCG/MG (0.0-30.0)
[2021-01-18 17:12] LABS: HEMOGLOBIN A1c 11.4 %
[2021-01-20 13:10] LABS: Lyme Disease IgG/IgM Antibodie <0.91 ISR (0.00-0.90); Lyme Disease IgM Ab Quantitati <0.80 index (0.00-0.79)
== END ==
LOC: M WUC 12:03
PROVIDERS: ATTEND Physician Assistant
DX: E11.65 Type 2 diabetes mellitus with hyperglycemia (principal); W57.XXXD Bitten or stung by nonvenomous insect and other nonvenomous arthropods, subsequent encounter

== ENCOUNTER → 2021-02-07 | Outpatient (CLI) | payer OTHER ==
[~2021-02-07] MED LIST changes: +E-Z-GAS II EFFERVESCENT PACKET (SODIUM BICARB./CITRIC ACID/SIMETHICONE) As Ordered ONE; +E-Z-HD 98% w/w 340GM SUSP BTL As Ordered ONE; +E-Z-PAQUE 96% w/w SUSP 176GM BTL As Ordered ONE
--- NOTE | 2021-02-07 16:16 | REP ---
INDICATION: DYSPHAGIA. COMPARISON: None TECHNIQUE: This procedure was performed by Desiree Schaefer [facility], under the direct supervision of Dr. Osman. Images were reviewed with Dr. Osman prior to dictation. Liquid barium and gas producing crystals were given in the erect position, as well as liquid barium in the prone oblique position in order to perform a double contrast esophagram examination. FINDINGS: A single view PA chest x-ray is submitted as a flow coordinator film. The superior mediastinal structures are midline. The heart size is within normal limits. The lungs are clear. The oral and pharyngeal stages of deglutition were unremarkable. However tertiary contractions were visualized during the exam. Esophageal transport is prompt and efficient and there is no evidence of esophagitis, stricture, or mucosal ring. There is no evidence of a hiatal hernia. There was no gastroesophageal reflux noted . IMPRESSION: Tertiary contractions were visualized during this exam, otherwise unremarkable. 0.2 minutes of fluoroscopy time was utilized for this procedure. Some fluoroscopic images are performed with last image hold technology. These images require no additional radiation. <Electronically signed by Desiree Schaefer > 02/07/21 1541 <Electronically signed by Howard Osman > 02/07/21 1612
== END ==
LOC: M RAD 08:51
PROVIDERS: ATTEND Physician Assistant Medical
DX: R13.10 Dysphagia, unspecified (principal); K21.9 Gastro-esophageal reflux disease without esophagitis; K31.84 Gastroparesis

== ENCOUNTER → 2021-03-15 | Outpatient (CLI) | payer OTHER ==
[~2021-03-15] MED LIST changes: -E-Z-GAS II EFFERVESCENT PACKET (SODIUM BICARB./CITRIC ACID/SIMETHICONE) As Ordered ONE; -E-Z-HD 98% w/w 340GM SUSP BTL As Ordered ONE; -E-Z-PAQUE 96% w/w SUSP 176GM BTL As Ordered ONE
== END ==
LOC: M LABSMTC 12:01
PROVIDERS: ATTEND Anesthesiology
DX: Z01.818 Encounter for other preprocedural examination (principal); Z11.52 Encounter for screening for COVID-19

== ENCOUNTER 2021-03-20 12:56 | Day surgery (SDC) | payer OTHER ==
[~2021-03-20] VITALS: Ht 167.6 cm; Wt 95.3 kg
[~2021-03-20 12:56] MED LIST changes: +NS 1,000 ML IV ONE
[2021-03-20] MEDS ORDERED: propofoL 200 MG/20 ML VIAL As Ordered ONE (13:56)
[2021-03-20] MEDS ORDERED: LIDOCAINE 2% 100MG/5ML SDV (FOR ANES.) As Ordered ONE (13:56)
[2021-03-20] MEDS ORDERED: fentaNYL 100 MCG/2 ML INJECTION (J3010) As Ordered ONE (13:57)
--- NOTE | 2021-03-20 15:41 | ROOR ---
Patient Name: Elvira Newell Procedure Date: 03/20/2021 3:26 PM Date of : 1970 Age: 50 Room: [facility] Gender: Female Note Status: Finalized Procedure: Upper GI endoscopy Indications: Dysphagia, Suspected esophageal reflux, Globus sensation Providers: Simone OLIVA MD Referring MD: LES Gilelspie Requesting Provider: Medicines: Monitored Anesthesia Care Complications: No immediate complications. Procedure: Pre-Anesthesia Assessment: - The heart rate, respiratory rate, oxygen saturations, blood pressure, adequacy of pulmonary ventilation, and response to care were monitored throughout the procedure. The Endoscope was introduced through the mouth, and advanced to the second part of duodenum. The upper GI endoscopy was accomplished without difficulty. The patient tolerated the procedure well. Findings: The esophagus was normal. The stomach was normal. The examined duodenum was normal. The scope was withdrawn. Dilation was performed in the entire esophagus with a Smyth dilator with no resistance at 54 Fr. Impression: - Normal esophagus. - Normal stomach. - Normal examined duodenum. - Dilation performed in the entire esophagus. - No specimens collected. Recommendation: - Observe patient's clinical course. - Continue present medications. Procedure Code(s): --- Professional --- 65749, Esophagogastroduodenoscopy, flexible, transoral; diagnostic, including collection of specimen(s) by brushing or washing, when performed (separate procedure) 42004, Dilation of esophagus, by unguided sound or bougie, single or multiple passes Diagnosis Code(s): --- Professional --- F45.8, Other somatoform disorders R13.10, Dysphagia, unspecified CPT copyright 2019 [employer]. All rights reserved. The codes documented in this report are preliminary and upon template inspector review may be revised to meet current compliance requirements. Simone Oliva MD Simone OLIVA MD 03/20/2021 3:41:31 PM Electronically signed by Simone OLIVA MD Number of Addenda: 0 Note Initiated On: 03/20/2021 3:26 PM Estimated Blood Loss: Estimated blood loss: none.
--- NOTE | 2021-03-20 15:56 | ROOR ---
Patient Name: Elvira Newell Procedure Date: 03/20/2021 3:27 PM Date of : 1970 Age: 50 Room: [facility] Gender: Female Note Status: Finalized Procedure: Colonoscopy Indications: High risk colon cancer surveillance: Personal history of colonic polyps, Last colonoscopy: December 2017 Providers: Simone OLIVA MD Referring MD: LES Gillespie Requesting Provider: Medicines: Monitored Anesthesia Care Complications: No immediate complications. Procedure: Pre-Anesthesia Assessment: - The heart rate, respiratory rate, oxygen saturations, blood pressure, adequacy of pulmonary ventilation, and response to care were monitored throughout the procedure. The Colonoscope was introduced through the anus and advanced to the terminal ileum, with identification of the appendiceal orifice and IC valve. The colonoscopy was performed without difficulty. The patient tolerated the procedure well. The quality of the bowel preparation was good. Findings: Skin tags were found on perianal exam. Three sessile polyps were found in the sigmoid colon and cecum. The polyps were diminutive in size. These polyps were removed with a cold snare. Resection and retrieval were complete. Small Internal Hemorrhoids. The exam was otherwise without abnormality on direct and retroflexion views. Impression: - Perianal skin tags found on perianal exam. - Three diminutive polyps in the sigmoid colon and in the cecum, removed with a cold snare. Resected and retrieved. - Small Internal Hemorrhoids. - The examination was otherwise normal on direct and retroflexion views. Recommendation: - Repeat colonoscopy in 5 years for surveillance. Procedure Code(s): --- Professional --- 67182, Colonoscopy, flexible; with removal of tumor(s), polyp(s), or other lesion(s) by snare technique Diagnosis Code(s): --- Professional --- K64.4, Residual hemorrhoidal skin tags K63.5, Polyp of colon Z86.010, Personal history of colonic polyps CPT copyright 2019 [employer]. All rights reserved. The codes documented in this report are preliminary and upon fingerprinter review may be revised to meet current compliance requirements. Simone Oliva MD Simone OLIVA MD 03/20/2021 3:56:16 PM Electronically signed by Simone OLIVA MD Number of Addenda: 0 Note Initiated On: 03/20/2021 3:27 PM Estimated Blood Loss: Estimated blood loss: none.
[2021-03-20] MEDS: PROMETHAZINE INJ 25 MG/ML VIAL (J2550) IV SCH ×2 (16:18→16:39)
[2021-03-20 16:40] VITALS: BP 144/86
== END 2021-03-20 17:00 | disposition home or self-care (01) ==
LOC: M OPP 12:56
PROVIDERS: ATTEND Internal Medicine Gastroenterology
DX: Z12.11 Encounter for screening for malignant neoplasm of colon (principal); Z86.010 Personal history of colon polyps; K63.5 Polyp of colon; K64.4 Residual hemorrhoidal skin tags; K64.8 Other hemorrhoids; R13.10 Dysphagia, unspecified; F45.8 Other somatoform disorders; E11.9 Type 2 diabetes mellitus without complications; G47.30 Sleep apnea, unspecified; Z79.84 Long term (current) use of oral hypoglycemic drugs; Z88.5 Allergy status to narcotic agent; Z88.8 Allergy status to other drugs, medicaments and biological substances
CPT/HCPCS: 43235; 43450; 45385; 88305; J3010

== ENCOUNTER → 2021-11-15 | Outpatient (CLI) | payer OTHER ==
[~2021-11-15] MED LIST changes: -NS 1,000 ML IV ONE
[2021-11-15 16:37] LABS: HEMATOCRIT 43.3 % (36.0-47.0); HEMOGLOBIN 14.2 g/dl (12.0-15.5); MEAN CORPUSCULAR HEMOGLOBIN 30.4 pg (27.0-33.0); MEAN CORPUSCULAR HGB CONC 32.8 g/dl (32.0-36.5); MEAN CORPUSCULAR VOLUME 92.7 fl (80.0-96.0); PLATELET COUNT, AUTOMATED 314 10^3/uL (150-450); RED BLOOD COUNT 4.67 10^6/uL (4.00-5.40); WHITE BLOOD COUNT 11.7 10^3/uL (4.0-10.0)
[2021-11-15 17:14] LABS: ALBUMIN 4.1 GM/DL (3.2-5.2); ALT/SGPT 42 U/L (12-78); BILIRUBIN,TOTAL 0.4 MG/DL (0.2-1.0); BLOOD UREA NITROGEN 14 MG/DL (7-18); CALCIUM LEVEL 9.7 MG/DL (8.5-10.1); CARBON DIOXIDE LEVEL 29 MEQ/L (21-32); CHLORIDE LEVEL 103 MEQ/L (98-107); CHOLESTEROL LEVEL 217 MG/DL (<200); CHOLESTEROL RISK RATIO 5.425 (<5); GLOMERULAR FILTRATION RATE > 60.0 (>51); GLUCOSE, FASTING 193 MG/DL (70-100); HDL CHOLESTEROL 40 MG/DL (>40); LDL CHOLESTEROL 142 MG/DL (<100); NON-HDL-C 177 MG/DL; POTASSIUM SERUM 4.2 MEQ/L (3.5-5.1); SODIUM LEVEL 137 MEQ/L (136-145); TOTAL PROTEIN 8.2 GM/DL (6.4-8.2); TRIGLYCERIDES LEVEL 175 MG/DL (<150)
[2021-11-15 17:26] LABS: HEMOGLOBIN A1c 9.8 %; MALB URINE SIEMENS 60.8 MG/L; MAU/CREAT RATIO 21.8 MCG/MG (0.0-30.0)
== END ==
LOC: M WUC 14:30
PROVIDERS: ATTEND Physician Assistant
DX: E11.65 Type 2 diabetes mellitus with hyperglycemia (principal)

== ENCOUNTER 2022-03-24 20:26 | Emergency (ER) | payer OTHER ==
[~2022-03-24] VITALS: Ht 167.6 cm; Wt 92.7 kg
[~2022-03-24 20:26] MED LIST changes: -PHEN30CA2 PO; +PHEN30CA21 PO
[2022-03-24] MEDS ORDERED: NS 500 ML IV ONE (20:55)
[2022-03-24] MEDS ORDERED: ONDANSETRON 4MG/2ML VIAL IV ONE (20:55)
[2022-03-24 21:21] LABS: BASO # 0.1 10^3/uL (0.0-0.2); BASO % 0.8 % (0.0-1.0); EOS # 0.1 10^3/uL (0.0-0.5); EOS % 1.3 % (0.0-3.0); HEMATOCRIT 38.9 % (36.0-47.0); HEMOGLOBIN 12.9 g/dl (12.0-15.5); LYMPH # 3.2 10^3/uL (1.5-5.0); LYMPH % 37.7 % (24.0-44.0); MEAN CORPUSCULAR HEMOGLOBIN 30.1 pg (27.0-33.0); MEAN CORPUSCULAR HGB CONC 33.2 g/dl (32.0-36.5); MEAN CORPUSCULAR VOLUME 90.7 fl (80.0-96.0); MONO # 0.8 10^3/uL (0.0-0.8); MONO % 9.1 % (2.0-8.0); NEUTROPHILS # 4.4 10^3/uL (1.5-8.5); NEUTROPHILS % 50.8 % (36.0-66.0); PLATELET COUNT, AUTOMATED 246 10^3/uL (150-450); RED BLOOD COUNT 4.29 10^6/uL (4.00-5.40); WHITE BLOOD COUNT 8.6 10^3/uL (4.0-10.0)
[2022-03-24] MEDS ORDERED: ISOVUE-370 76% 100ML VIAL As Ordered ONE (21:26)
[2022-03-24 21:39] LABS: INR 0.97; PROTHROMBIN TIME 13.3 SECONDS (12.7-14.5)
[2022-03-24] MEDS: MORPHINE 4 MG/ML 1ML VIAL/SYRINGE IV PRN ×2 (21:39→22:27)
[2022-03-24 21:40] LABS: PARTIAL THROMBOPLASTIN TIME 26.3 SECONDS (25.9-37.0)
[2022-03-24 21:49] LABS: ALBUMIN 3.7 GM/DL (3.2-5.2); ALT/SGPT 48 U/L (12-78); BILIRUBIN,DIRECT < 0.1 MG/DL (0.0-0.2); BILIRUBIN,TOTAL 0.4 MG/DL (0.2-1.0); LIPASE 93 U/L (73-393); TOTAL PROTEIN 7.6 GM/DL (6.4-8.2)
[2022-03-24] MEDS ORDERED: KETOROLAC 30 MG/ML 1ML VIAL IV ONE (22:25)
[2022-03-24] MEDS ORDERED: METAL LOCK LOOP XX ONE (22:26)
[2022-03-24] MEDS ORDERED: METOCLOPRAMIDE 10MG TAB PO ONE (23:35)
[2022-03-24] MEDS ORDERED: TAMSULOSIN 0.4 MG CAP PO ONE (23:35)
[2022-03-24] MEDS ORDERED: OXYCODONE/APAP 5MG/325MG(BULK FOR ED) 1 TABLET PO ONE (23:35)
[2022-03-24] MEDS ORDERED: REGL10TA6 PO (23:41)
[2022-03-24] MEDS ORDERED: PERC5TAB12 PO (23:41)
[2022-03-24] MEDS ORDERED: FLOM0.4C39 PO (23:41)
[2022-03-25 00:02] VITALS: BP 135/72
== END 2022-03-25 00:09 | disposition home or self-care (01) ==
LOC: M ED 20:26
DX: S30.0XXA Contusion of lower back and pelvis, initial encounter (principal); S52.92XA Unspecified fracture of left forearm, initial encounter for closed fracture; W01.198A Fall on same level from slipping, tripping and stumbling with subsequent striking against other object, initial encounter; Y92.098 Other place in other non-institutional residence as the place of occurrence of the external cause; Y93.89 Activity, other specified; Y99.8 Other external cause status; N20.2 Calculus of kidney with calculus of ureter; E11.9 Type 2 diabetes mellitus without complications; M48.061 Spinal stenosis, lumbar region without neurogenic claudication; Z88.5 Allergy status to narcotic agent; Z88.8 Allergy status to other drugs, medicaments and biological substances; Z79.899 Other long term (current) drug therapy
CPT/HCPCS: 36415; 72131; 74177; 80076; 81001; 83690; 85025; 85610; 85730; 86850; 86900; 86901; 87086; 93041; 96361; 96374; 96375; 96376; 99284; J1885; J2270; J2405; Q9967

== ENCOUNTER → 2022-03-26 | Outpatient (CLI) | payer OTHER ==
[~2022-03-26] MED LIST changes: +FLOM0.4C39 PO; +PERC5TAB12 PO; +REGL10TA6 PO
[2022-03-26 15:39] LABS: BLOOD UREA NITROGEN 12 MG/DL (7-18); CALCIUM LEVEL 9.1 MG/DL (8.5-10.1); CARBON DIOXIDE LEVEL 29 MEQ/L (21-32); CHLORIDE LEVEL 103 MEQ/L (98-107); CREATININE FOR GFR 0.78 MG/DL (0.55-1.30); GLOMERULAR FILTRATION RATE > 60.0 (>51); GLUCOSE, FASTING 285 MG/DL (70-100); POTASSIUM SERUM 4.1 MEQ/L (3.5-5.1); SODIUM LEVEL 136 MEQ/L (136-145)
== END ==
LOC: M EKG 14:50
PROVIDERS: ATTEND Orthopaedic Surgery
DX: S52.502A Unspecified fracture of the lower end of left radius, initial encounter for closed fracture (principal)

== ENCOUNTER → 2022-04-04 | Outpatient (CLI) | payer OTHER | LOC: M PLARAD 12:23 | PROVIDERS: ATTEND Orthopaedic Surgery | DX: S52.572A Other intraarticular fracture of lower end of left radius, initial encounter for closed fracture (principal); W18.30XA Fall on same level, unspecified, initial encounter; Y92.009 Unspecified place in unspecified non-institutional (private) residence as the place of occurrence of the external cause ==

== ENCOUNTER → 2022-08-07 | Outpatient (REF) | payer OTHER | LOC: M LAB REF 08:33 | PROVIDERS: ATTEND Student in an Organized Health Care Education/Training Program | DX: R30.0 Dysuria (principal) ==

== ENCOUNTER → 2022-08-15 | Outpatient (CLI) | payer OTHER ==
[2022-08-15 18:30] LABS: BASO # 0.1 10^3/uL (0.0-0.2); BASO % 0.9 % (0.0-1.0); EOS # 0.2 10^3/uL (0.0-0.5); EOS % 1.9 % (0.0-3.0); HEMATOCRIT 38.6 % (36.0-47.0); HEMOGLOBIN 12.6 g/dl (12.0-15.5); LYMPH # 3.6 10^3/uL (1.5-5.0); LYMPH % 44.5 % (24.0-44.0); MEAN CORPUSCULAR HEMOGLOBIN 30.6 pg (27.0-33.0); MEAN CORPUSCULAR HGB CONC 32.6 g/dl (32.0-36.5); MEAN CORPUSCULAR VOLUME 93.7 fl (80.0-96.0); MONO # 0.7 10^3/uL (0.0-0.8); MONO % 8.2 % (2.0-8.0); NEUTROPHILS # 3.6 10^3/uL (1.5-8.5); NEUTROPHILS % 44.3 % (36.0-66.0); PLATELET COUNT, AUTOMATED 246 10^3/uL (150-450); RED BLOOD COUNT 4.12 10^6/uL (4.00-5.40)
[2022-08-15 19:02] LABS: BLOOD UREA NITROGEN 12 MG/DL (7-18); CALCIUM LEVEL 9.3 MG/DL (8.5-10.1); CARBON DIOXIDE LEVEL 27 MEQ/L (21-32); CHLORIDE LEVEL 104 MEQ/L (98-107); CREATININE FOR GFR 0.69 MG/DL (0.55-1.30); GLOMERULAR FILTRATION RATE > 60.0 (>51); GLUCOSE, FASTING 252 MG/DL (70-100); POTASSIUM SERUM 4.4 MEQ/L (3.5-5.1); SODIUM LEVEL 136 MEQ/L (136-145)
== END ==
LOC: M LAB 17:09
PROVIDERS: ATTEND Physician Assistant
DX: R73.9 Hyperglycemia, unspecified (principal)

== ENCOUNTER → 2022-09-17 | Outpatient (CLI) | payer OTHER | LOC: M RAD 13:55 | PROVIDERS: ATTEND Physician Assistant | DX: S52.572D Other intraarticular fracture of lower end of left radius, subsequent encounter for closed fracture with routine healing (principal); W18.30XD Fall on same level, unspecified, subsequent encounter ==

== ENCOUNTER 2022-09-21 00:57 | Observation (INO) | payer OTHER ==
[~2022-09-21] VITALS: Ht 167.6 cm; Wt 98.2 kg
[2022-09-21] MEDS ORDERED: NS 1,000 ML IV ONE ×2 (01:20→03:05)
[2022-09-21 01:31] LABS: BASO # 0.1 10^3/uL (0.0-0.2); BASO % 0.8 % (0.0-1.0); EOS # 0.1 10^3/uL (0.0-0.5); EOS % 1.2 % (0.0-3.0); HEMOGLOBIN 13.5 g/dl (12.0-15.5); LYMPH # 3.7 10^3/uL (1.5-5.0); MEAN CORPUSCULAR HEMOGLOBIN 30.5 pg (27.0-33.0); MEAN CORPUSCULAR HGB CONC 33.8 g/dl (32.0-36.5); MEAN CORPUSCULAR VOLUME 90.5 fl (80.0-96.0); MONO # 0.8 10^3/uL (0.0-0.8); MONO % 9.5 % (2.0-8.0); NEUTROPHILS # 3.7 10^3/uL (1.5-8.5); NEUTROPHILS % 44.1 % (36.0-66.0); PLATELET COUNT, AUTOMATED 246 10^3/uL (150-450); RED BLOOD COUNT 4.42 10^6/uL (4.00-5.40); WHITE BLOOD COUNT 8.3 10^3/uL (4.0-10.0)
[2022-09-21 01:37] LABS: VENOUS BASE EXCESS -0.2 (-2.0-2.0); VENOUS HCO3 24.5 MEQ/L (23.0-27.0); VENOUS O2 SATURATION 97.4 % (60.0-80.0); VENOUS PARTIAL PRESSURE CO2 40.2 mmHg (38.0-50.0); VENOUS PARTIAL PRESSURE O2 95.9 mmHg (30.0-50.0); VENOUS PH 7.403 UNITS (7.330-7.430); VENOUS STANDARD HCO3 24.4 MEQ/L; VENOUS TOTAL CO2 25.7 MEQ/L (24.0-28.0)
[2022-09-21 02:03] LABS: HEMOGLOBIN A1c 9.8 %
[2022-09-21 02:05] LABS: OSMOLALITY SERUM 302 MOSM/KG (275-295)
[2022-09-21 02:13] LABS: CK-MB VALUE MASS < 1.0 NG/ML (<3.6); CPK CREATINE PHOSPHOKINASE 59 U/L (26-192); MB/CK RELATIVE INDEX 1.69 (< OR =4)
[2022-09-21 02:21] LABS: ACETONE/KETONE 2.13 MG/DL (<2.81); ALBUMIN 3.7 GM/DL (3.2-5.2); ALT/SGPT 53 U/L (12-78); BILIRUBIN,DIRECT 0.1 MG/DL (0.0-0.2); BILIRUBIN,TOTAL 0.4 MG/DL (0.2-1.0); BLOOD UREA NITROGEN 16 MG/DL (7-18); CALCIUM LEVEL 9.3 MG/DL (8.5-10.1); CARBON DIOXIDE LEVEL 23 MEQ/L (21-32); CHLORIDE LEVEL 102 MEQ/L (98-107); CREATININE FOR GFR 0.85 MG/DL (0.55-1.30); ETHYL ALCOHOL (ETHANOL) < 0.003 % (0.000-0.010); GLOMERULAR FILTRATION RATE > 60.0 (>51); GLUCOSE, FASTING 362 MG/DL (70-100); LIPASE 153 U/L (73-393); POTASSIUM SERUM 4.3 MEQ/L (3.5-5.1); SODIUM LEVEL 135 MEQ/L (136-145); TOTAL PROTEIN 7.7 GM/DL (6.4-8.2)
[2022-09-21] MEDS ORDERED: KETOROLAC 30 MG/ML 1ML VIAL IV ONE ×2 (03:05→12:15)
[2022-09-21] MEDS ORDERED: ISOVUE-370 76% 100ML VIAL As Ordered ONE (03:34)
[2022-09-21] MEDS ORDERED: cefTRIAXone SOD 1 GM in D5W MINI-BAG PLUS 50 ML IV ONE (06:00)
[2022-09-21] MEDS ORDERED: ACETAMINOPHEN TAB 650MG DOSE (2X325MG) PO PRN (08:10)
[2022-09-21] MEDS ORDERED: ONDANSETRON 4MG 2ML VIAL IV PRN (08:10)
[2022-09-21] MEDS ORDERED: DEXTROSE 50% 50 ML SYRINGE IV PRN (08:15)
[2022-09-21] MEDS ORDERED: METOCLOPRAMIDE 10MG TAB PO PRN (08:15)
[2022-09-21] MEDS ORDERED: GLUCAGON INJ 1MG VIAL SC PRN (08:15)
[2022-09-21] MEDS ORDERED: GLUCOSE 4GM CHEW TABLET PO PRN (08:15)
[2022-09-21] MEDS ORDERED: LEVEMIR (INSULIN DETEMIR) 1 UNITS/0.01ML SC SCH ×2 (09:00→21:00)
[2022-09-21 09:09] LABS: HEMOGLOBIN 12.2 g/dl (12.0-15.5); MEAN CORPUSCULAR HEMOGLOBIN 30.2 pg (27.0-33.0); MEAN CORPUSCULAR VOLUME 91.6 fl (80.0-96.0); PLATELET COUNT, AUTOMATED 229 10^3/uL (150-450); RED BLOOD COUNT 4.04 10^6/uL (4.00-5.40); WHITE BLOOD COUNT 6.5 10^3/uL (4.0-10.0)
[2022-09-21 09:19] LABS: INR 1.01; PROTHROMBIN TIME 13.5 SECONDS (12.5-14.5)
[2022-09-21 09:20] LABS: PARTIAL THROMBOPLASTIN TIME 24.6 SECONDS (24.8-34.2)
[2022-09-21] MEDS ORDERED: TYLE650T38 PO (09:44)
[2022-09-21] MEDS ORDERED: BASA100I SC (09:44)
[2022-09-21] MEDS ORDERED: DULA3PEN SC (09:44)
[2022-09-21] MEDS ORDERED: ONDA4TAB6 PO (09:44)
[2022-09-21] MEDS ORDERED: REGL5TAB2 PO (09:44)
[2022-09-21 09:45] LABS: ALBUMIN 3.4 GM/DL (3.2-5.2); ALT/SGPT 44 U/L (12-78); BILIRUBIN,TOTAL 0.4 MG/DL (0.2-1.0); BLOOD UREA NITROGEN 13 MG/DL (7-18); CALCIUM LEVEL 8.4 MG/DL (8.5-10.1); CARBON DIOXIDE LEVEL 26 MEQ/L (21-32); CHLORIDE LEVEL 104 MEQ/L (98-107); CHOLESTEROL LEVEL 168 MG/DL (<200); CHOLESTEROL RISK RATIO 4.941 (<5); GLOMERULAR FILTRATION RATE > 60.0 (>51); GLUCOSE, FASTING 255 MG/DL (70-100); HDL CHOLESTEROL 34 MG/DL (>40); LDL CHOLESTEROL 102 MG/DL (<100); NON-HDL-C 134 MG/DL; POTASSIUM SERUM 4.5 MEQ/L (3.5-5.1); SODIUM LEVEL 135 MEQ/L (136-145); TRIGLYCERIDES LEVEL 159 MG/DL (<150)
[2022-09-21] MEDS ORDERED: VITAD400CA PO (09:46)
[2022-09-21] MEDS ORDERED: HOME MED LIST COMPLETE! XX SCH (09:50)
[2022-09-21] MEDS: INSULIN LISPRO (NovoLOG) PER UNIT SC SCH ×3 (09:50→17:03)
[2022-09-21] MEDS: ENOXAPARIN 40MG/0.4ML SYRINGE (J1650 PER 10MG) SC SCH (11:09)
[2022-09-21] MEDS: NS 1,000 ML IV SCH ×3 (11:14→19:33)
[2022-09-21] MEDS: METOCLOPRAMIDE INJ 10MG/2ML VIAL (J2765 PER 1) IV PRN ×2 (12:57→21:40)
[2022-09-21 15:30] VITALS: BP_SYST 144; BP_SYST 152; BP_DIAS 78; BP_DIAS 88; BP_DIAS 96
[2022-09-21 16:14] VITALS: BP 152/96
[2022-09-21] MEDS ORDERED: JANU100T PO (18:47)
[2022-09-21 20:00] VITALS: BP 137/69
[2022-09-21] MEDS ORDERED: INSULIN LISPRO (NovoLOG) PER UNIT SC SCH (21:00)
[2022-09-22] MEDS: NYSTATIN 100,000 UNITS/GM TOPICAL PWD 15 GM TOP SCH ×2 (02:11→10:22)
[2022-09-22 05:15] VITALS: BP 125/73
[2022-09-22] MEDS ORDERED: cefTRIAXone SOD 1 GM in D5W MINI-BAG PLUS 50 ML IV SCH (06:00)
[2022-09-22 06:04] VITALS: BP_SYST 130; BP_SYST 142; BP_SYST 147; BP_DIAS 74; BP_DIAS 77; BP_DIAS 89
[2022-09-22] MEDS: NS 1,000 ML IV SCH (06:04)
[2022-09-22 06:55] LABS: HEMATOCRIT 35.7 % (36.0-47.0); HEMOGLOBIN 11.7 g/dl (12.0-15.5); MEAN CORPUSCULAR HEMOGLOBIN 30.3 pg (27.0-33.0); MEAN CORPUSCULAR HGB CONC 32.8 g/dl (32.0-36.5); MEAN CORPUSCULAR VOLUME 92.5 fl (80.0-96.0); PLATELET COUNT, AUTOMATED 212 10^3/uL (150-450); RED BLOOD COUNT 3.86 10^6/uL (4.00-5.40)
[2022-09-22 07:21] LABS: BLOOD UREA NITROGEN 10 MG/DL (7-18); CALCIUM LEVEL 8.6 MG/DL (8.5-10.1); CARBON DIOXIDE LEVEL 26 MEQ/L (21-32); CHLORIDE LEVEL 106 MEQ/L (98-107); CREATININE FOR GFR 0.54 MG/DL (0.55-1.30); GLOMERULAR FILTRATION RATE > 60.0 (>51); GLUCOSE, FASTING 185 MG/DL (70-100); SODIUM LEVEL 137 MEQ/L (136-145)
[2022-09-22] MEDS ORDERED: GLIMEPIRIDE 2 MG TAB PO SCH (08:00)
[2022-09-22] MEDS: METOCLOPRAMIDE INJ 10MG/2ML VIAL (J2765 PER 1) IV PRN (08:29)
[2022-09-22] MEDS ORDERED: TRAD5TAB PO (08:31)
[2022-09-22] MEDS ORDERED: CEFUROXIME 500 MG TAB PO SCH (09:00)
[2022-09-22] MEDS ORDERED: SITagliptin 50 MG TAB (JANUVIA) PO SCH (09:00)
[2022-09-22] MEDS ORDERED: LEVEMIR (INSULIN DETEMIR) 1 UNITS/0.01ML SC SCH (09:00)
[2022-09-22] MEDS ORDERED: ACET1TAB55 PO (09:12)
[2022-09-22] MEDS ORDERED: BASA100I SC (09:12)
[2022-09-22] MEDS ORDERED: NESI25TA PO (09:12)
[2022-09-22] MEDS ORDERED: CEFU50TA PO (09:12)
[2022-09-22] MEDS: INSULIN LISPRO (NovoLOG) PER UNIT SC SCH ×2 (09:16→11:50)
[2022-09-22] MEDS: ENOXAPARIN 40MG/0.4ML SYRINGE (J1650 PER 10MG) SC SCH (09:18)
== END 2022-09-22 14:32 | disposition home or self-care (01) ==
LOC: M ED 00:57 → M ED INP 00:58 → M MSPAV 14:44 → ENRESERV 14:47 → M MSPAV 15:35
PROVIDERS: ADMIT Internal Medicine; ATTEND Internal Medicine
DX: R55 Syncope and collapse (principal); N39.0 Urinary tract infection, site not specified; E11.65 Type 2 diabetes mellitus with hyperglycemia; E11.42 Type 2 diabetes mellitus with diabetic polyneuropathy; K31.84 Gastroparesis; R10.9 Unspecified abdominal pain; G89.29 Other chronic pain; N20.0 Calculus of kidney; K21.9 Gastro-esophageal reflux disease without esophagitis; R16.1 Splenomegaly, not elsewhere classified; K76.9 Liver disease, unspecified; E66.9 Obesity, unspecified; Z68.34 Body mass index [BMI] 34.0-34.9, adult; Z87.440 Personal history of urinary (tract) infections; Z87.442 Personal history of urinary calculi; Z79.899 Other long term (current) drug therapy; Z79.84 Long term (current) use of oral hypoglycemic drugs; Z79.4 Long term (current) use of insulin; Z88.8 Allergy status to other drugs, medicaments and biological substances; Z88.5 Allergy status to narcotic agent; Z87.891 Personal history of nicotine dependence
CPT/HCPCS: 36415; 70450; 71045; 74177; 76376; 80048; 80053; 80061; 80076; 81000; 81015; 82010; 82077; 82550; 82553; 82803; 83036; 83690; 83930; 85025; 85027; 85610; 85730; 87040; 87086; 87486; 87581; 87633; 87798; 93005; 93041; 93306; 93356; 94760; 96361; 96365; 96372; 96375; 96376; 97161; 97530; 99285; J0696; J1650; J1815; J1885; J2765; Q9967

== ENCOUNTER → 2022-10-04 | Outpatient (REF) | payer OTHER, MEDICAID ==
[~2022-10-04] MED LIST changes: +ACET1TAB55 PO; +BASA100I SC; +CEFU50TA PO; +DULA3PEN SC; +JANU100T PO; +NESI25TA PO; +ONDA4TAB6 PO; +REGL5TAB2 PO; +TRAD5TAB PO; +TYLE650T38 PO; +VITAD400CA PO
== END ==
LOC: M LAB REF 16:41
PROVIDERS: ATTEND Physician Assistant
DX: R30.9 Painful micturition, unspecified (principal)

== ENCOUNTER 2022-10-16 09:13 | Emergency (ER) | payer OTHER, MEDICAID ==
[~2022-10-16] VITALS: Ht 167.6 cm; Wt 97.6 kg
[2022-10-16] MEDS ORDERED: ADME100I2 (10:10)
[2022-10-16] MEDS ORDERED: diphenhydrAMINE 50MG/ML VIAL IV STA (11:55)
[2022-10-16] MEDS ORDERED: NS 1,000 ML IV ONE (11:55)
[2022-10-16] MEDS ORDERED: methylPREDNISolone 125MG 2ML VIAL IV ONE (11:55)
[2022-10-16] MEDS ORDERED: PROMETHAZINE 25MG/ML 1ML VIAL IV ONE (12:30)
[2022-10-16 15:58] VITALS: BP 146/80
[2022-10-16] MEDS ORDERED: PRED20TA PO (16:07)
== END 2022-10-16 16:16 | disposition home or self-care (01) ==
LOC: M ED 09:13
DX: T78.40XA Allergy, unspecified, initial encounter (principal); R21 Rash and other nonspecific skin eruption; L50.9 Urticaria, unspecified; E11.9 Type 2 diabetes mellitus without complications; K21.9 Gastro-esophageal reflux disease without esophagitis; I50.9 Heart failure, unspecified; Z87.442 Personal history of urinary calculi; Z87.891 Personal history of nicotine dependence; Z88.5 Allergy status to narcotic agent; Z88.8 Allergy status to other drugs, medicaments and biological substances; Z79.899 Other long term (current) drug therapy; Z79.4 Long term (current) use of insulin
CPT/HCPCS: 80047; 96361; 96374; 96375; 99284; J1200; J2550; J2930

== ENCOUNTER → 2022-11-07 | Outpatient (REF) | payer OTHER, MEDICAID ==
[~2022-11-07] MED LIST changes: +ADME100I2; +PRED20TA PO
== END ==
LOC: M LAB REF 16:56
PROVIDERS: ATTEND Physician Assistant
DX: R22.0 Localized swelling, mass and lump, head (principal); L50.9 Urticaria, unspecified

== ENCOUNTER → 2023-01-08 | Outpatient (CLI) | payer OTHER, MEDICAID ==
[2023-01-10 16:09] LABS: SSA SJOGRENS A <0.2 AI (0.0-0.9); SSB SJOGRENS B <0.2 AI (0.0-0.9)
== END ==
LOC: M WUC 13:49
PROVIDERS: ATTEND Physician Assistant
DX: H04.123 Dry eye syndrome of bilateral lacrimal glands (principal)

== ENCOUNTER → 2023-02-12 | Outpatient (REF) | payer OTHER, MEDICAID | LOC: M LAB REF 16:27 | PROVIDERS: ATTEND Physician Assistant | DX: R30.9 Painful micturition, unspecified (principal) ==

== ENCOUNTER → 2023-03-28 | Outpatient (CLI) | payer OTHER | LOC: M PLAIMG 14:48 | PROVIDERS: ATTEND Physician Assistant | DX: N20.0 Calculus of kidney (principal) ==

== ENCOUNTER 2023-04-04 15:51 | Emergency (ER) | payer OTHER ==
[~2023-04-04] VITALS: Ht 167.6 cm; Wt 106.8 kg
[2023-04-04 16:47] LABS: BASO # 0.1 10^3/uL (0.0-0.2); BASO % 0.6 % (0.0-1.0); EOS # 0.2 10^3/uL (0.0-0.5); EOS % 1.6 % (0.0-3.0); HEMATOCRIT 38.5 % (36.0-47.0); HEMOGLOBIN 12.7 g/dl (12.0-15.5); LYMPH # 4.1 10^3/uL (1.5-5.0); MEAN CORPUSCULAR HEMOGLOBIN 30.6 pg (27.0-33.0); MEAN CORPUSCULAR VOLUME 92.8 fl (80.0-96.0); MONO # 0.9 10^3/uL (0.0-0.8); MONO % 8.7 % (2.0-8.0); NEUTROPHILS # 4.6 10^3/uL (1.5-8.5); NEUTROPHILS % 46.7 % (36.0-66.0); PLATELET COUNT, AUTOMATED 249 10^3/uL (150-450); RED BLOOD COUNT 4.15 10^6/uL (4.00-5.40); WHITE BLOOD COUNT 9.9 10^3/uL (4.0-10.0)
[2023-04-04 17:12] LABS: LIPASE 33 U/L (12-53)
[2023-04-04 17:14] LABS: ALBUMIN 3.7 G/DL (3.2-5.2); ALKALINE PHOSPHATASE 57 U/L (46-116); ALT/SGPT 41 U/L (7.0-40); AST/SGOT 26 U/L (<34); BILIRUBIN,DIRECT < 0.1 MG/DL (<0.4); BILIRUBIN,TOTAL 0.3 MG/DL (0.3-1.2); BLOOD UREA NITROGEN 12 MG/DL (9-23); CALCIUM LEVEL 9.3 MG/DL (8.5-10.1); CARBON DIOXIDE LEVEL 28 MMOL/L (20-31); CHLORIDE LEVEL 104 MMOL/L (98-107); CREATININE FOR GFR 0.56 MG/DL (0.55-1.30); GLOMERULAR FILTRATION RATE > 60.0 (>51); GLUCOSE, FASTING 219 MG/DL (60-100); POTASSIUM SERUM 4.2 MMOL/L (3.5-5.1); SODIUM LEVEL 138 MMOL/L (136-145); TOTAL PROTEIN 7.3 G/DL (5.7-8.2)
[2023-04-04] MEDS ORDERED: NS 1,000 ML IV ONE (20:40)
[2023-04-04] MEDS ORDERED: KETOROLAC 30 MG/ML 1ML VIAL IV ONE (20:40)
[2023-04-04] MEDS ORDERED: methocarbamoL 750 MG TAB PO ONE (20:40)
[2023-04-04] MEDS ORDERED: LIDOCAINE 5% (LIDODERM) PATCH TD ONE (20:40)
[2023-04-04] MEDS ORDERED: ISOVUE-370 76% 100ML VIAL As Ordered ONE (20:47)
[2023-04-04] MEDS ORDERED: ONDANSETRON 4MG 2ML VIAL IV ONE (21:05)
[2023-04-04 21:49] LABS: CK-MB VALUE MASS < 1.0 NG/ML (<3.6)
[2023-04-04 21:50] LABS: CPK CREATINE PHOSPHOKINASE 82 U/L (34-145); MB/CK RELATIVE INDEX 1.21 (< OR =4)
[2023-04-04] MEDS ORDERED: HALOPERIDOL 5MG/ML 1ML VIAL IV ONE (23:05)
[2023-04-05] MEDS ORDERED: ASPE4PAD TOP (00:13)
[2023-04-05 00:38] VITALS: BP 138/79
== END 2023-04-05 00:40 | disposition home or self-care (01) ==
LOC: M ED 15:51
DX: M54.9 Dorsalgia, unspecified (principal); G89.29 Other chronic pain; N20.0 Calculus of kidney; N28.1 Cyst of kidney, acquired; K76.0 Fatty (change of) liver, not elsewhere classified; E11.9 Type 2 diabetes mellitus without complications; G47.33 Obstructive sleep apnea (adult) (pediatric); E28.2 Polycystic ovarian syndrome; Z87.442 Personal history of urinary calculi; Z88.5 Allergy status to narcotic agent; Z88.8 Allergy status to other drugs, medicaments and biological substances; Z79.899 Other long term (current) drug therapy
CPT/HCPCS: 71045; 74177; 80048; 80076; 82550; 82553; 83690; 83880; 85025; 96374; 96375; 99284; J1630; J1885; J2405; Q9967

== ENCOUNTER → 2023-04-24 | Outpatient (REF) | payer OTHER ==
[~2023-04-24] MED LIST changes: +ACE65ERTAB PO; +ACTO15TA19 PO; -ADME100I2; +ADME100I2 SC; +ASPE4PAD TOP; +IBUP200C29 PO; +LEXA1TAB PO; +VITA100093 PO
[2023-04-24 21:15] LABS: APPEARANCE, URINE HAZY (CLEAR); BACTERIA, URINE AUTO 1+ (NEGATIVE); BILIRUBIN, URINE AUTO NEGATIVE (NEGATIVE); BLOOD, URINE BLOOD 2+ (NEGATIVE); COLOR, URINE AMBER (YELLOW); GLUCOSE, URINE (UA) AUTO NEGATIVE (NEGATIVE); KETONE, URINE AUTO NEGATIVE (NEGATIVE); LEUKOCYTE ESTERASE, URINE AUTO 2+ (NEGATIVE); MUCUS, URINE SMALL (NEGATIVE); NITRITE, URINE AUTO NEGATIVE (NEGATIVE); PROTEIN, URINE AUTO 1+ mg/dL (NEGATIVE); RBC, URINE AUTO 45 /HPF (0-3); SQUAMOUS EPITHELIAL CELL UR AU 2 /HPF (0-6); UROBILINOGEN, URINE AUTO 0.2 mg/dL (0.0-2.0); WBC, URINE AUTO 100 /HPF (0-3)
== END ==
LOC: M LAB REF 20:41
PROVIDERS: ATTEND Physician Assistant
DX: Z01.818 Encounter for other preprocedural examination (principal)

== ENCOUNTER 2023-05-01 08:26 | Day surgery (SDC) | payer OTHER ==
[~2023-05-01] VITALS: Ht 167.6 cm; Wt 106.0 kg
[~2023-05-01 08:26] MED LIST changes: +ceFAZolin SOD 2 GM in IV 1 EA IV ONE
[2023-05-01] MEDS ORDERED: MIDAZOLAM INJ 2MG/2ML VIAL As Ordered ONE (08:47)
[2023-05-01] MEDS ORDERED: LIDOCAINE 2% 100MG/5ML SDV (FOR ANES.) As Ordered ONE (08:47)
[2023-05-01] MEDS ORDERED: propofoL 200 MG/20 ML VIAL As Ordered ONE (08:47)
[2023-05-01] MEDS ORDERED: fentaNYL 100 MCG/2 ML INJECTION As Ordered ONE (08:48)
[2023-05-01] MEDS ORDERED: LR 1,000 ML IV SCH ×2 (09:05→13:15)
[2023-05-01] MEDS ORDERED: SCOPOLAMINE 1MG TRANSDERMAL PATCH TOP ONE (11:40)
[2023-05-01] MEDS ORDERED: ISOVUE-300 61% 100ML VIAL As Ordered ONE (12:17)
[2023-05-01] MEDS ORDERED: ROCURONIUM BROMIDE 50MG/5ML VIAL As Ordered ONE (12:25)
[2023-05-01] MEDS ORDERED: METOCLOPRAMIDE INJ 10MG/2ML VIAL As Ordered ONE (12:50)
[2023-05-01] MEDS ORDERED: KETOROLAC 60MG 2ML VIAL As Ordered ONE (12:50)
[2023-05-01] MEDS ORDERED: ONDANSETRON 4MG 2ML VIAL As Ordered ONE (12:50)
[2023-05-01] MEDS ORDERED: SUGAMMADEX SODIUM 500 MG/5 ML VIAL (BRIDION) As Ordered ONE (12:50)
[2023-05-01] MEDS ORDERED: ACETAMINOPHEN 1000MG 100ML IV BAG As Ordered ONE (12:51)
[2023-05-01] MEDS ORDERED: fentaNYL 100 MCG/2 ML INJECTION IV PRN (13:15)
[2023-05-01] MEDS ORDERED: ONDANSETRON 4MG 2ML VIAL IV PRN (13:15)
[2023-05-01] MEDS ORDERED: PERCOCET 5MG/325MG TAB PO PRN (13:50)
[2023-05-01] MEDS: oxyCODONE 5MG TAB PO PRN ×2 (14:10→14:39)
[2023-05-01 15:34] VITALS: BP 152/75; TEMP 97.6; O2SAT 97
[2023-05-06 18:07] LABS: Ca Ox Monohydrate 100 % (.); Size 4x4 mm (.)
== END 2023-05-01 15:45 | disposition home or self-care (01) ==
LOC: M SDC 08:26
PROVIDERS: ATTEND Urology
DX: N13.2 Hydronephrosis with renal and ureteral calculous obstruction (principal); E11.9 Type 2 diabetes mellitus without complications; K21.9 Gastro-esophageal reflux disease without esophagitis; K31.84 Gastroparesis; Z79.899 Other long term (current) drug therapy; Z79.4 Long term (current) use of insulin; F41.9 Anxiety disorder, unspecified; F32.A Depression, unspecified; G47.33 Obstructive sleep apnea (adult) (pediatric); Z79.84 Long term (current) use of oral hypoglycemic drugs
CPT/HCPCS: 52332; 52352; 74420; 82365; C1769; C1894; C2617; J0131; J0690; J1885; J2250; J2405; J2765; J3010; Q9967

== ENCOUNTER → 2023-05-03 | Outpatient (CLI) | payer OTHER ==
[~2023-05-03] MED LIST changes: +GASTROGRAFIN SOLUTION 30ML As Ordered ONE; +ISOVUE-370 76% 100ML VIAL As Ordered ONE; -ceFAZolin SOD 2 GM in IV 1 EA IV ONE
== END ==
LOC: M RAD 13:12
PROVIDERS: ATTEND Physician Assistant Medical
DX: R10.12 Left upper quadrant pain (principal); K76.0 Fatty (change of) liver, not elsewhere classified; Z96.0 Presence of urogenital implants; N28.1 Cyst of kidney, acquired
CPT/HCPCS: 74178; Q9963; Q9967

== ENCOUNTER 2023-05-07 12:55 | Day surgery (SDC) | payer OTHER ==
[~2023-05-07] VITALS: Ht 167.6 cm; Wt 104.3 kg
[~2023-05-07 12:55] MED LIST changes: -GASTROGRAFIN SOLUTION 30ML As Ordered ONE; -ISOVUE-370 76% 100ML VIAL As Ordered ONE
[2023-05-07] MEDS: NS 1,000 ML IV ONE (14:07)
[2023-05-07] MEDS ORDERED: propofoL 200 MG/20 ML VIAL As Ordered ONE (15:01)
[2023-05-07] MEDS ORDERED: LIDOCAINE 2% 100MG/5ML SDV (FOR ANES.) As Ordered ONE (15:01)
[2023-05-07] MEDS ORDERED: fentaNYL 100 MCG/2 ML INJECTION As Ordered ONE (15:02)
[2023-05-07 15:26] VITALS: BP 125/66; TEMP 98.4; O2SAT 98
== END 2023-05-07 15:43 | disposition home or self-care (01) ==
LOC: M OPP 12:55
PROVIDERS: ATTEND Internal Medicine Gastroenterology
DX: K31.84 Gastroparesis (principal); E11.9 Type 2 diabetes mellitus without complications; K21.9 Gastro-esophageal reflux disease without esophagitis; M19.90 Unspecified osteoarthritis, unspecified site; F41.9 Anxiety disorder, unspecified; F32.A Depression, unspecified; G47.30 Sleep apnea, unspecified; Z88.5 Allergy status to narcotic agent; Z88.8 Allergy status to other drugs, medicaments and biological substances; Z79.4 Long term (current) use of insulin; Z79.899 Other long term (current) drug therapy; Z83.3 Family history of diabetes mellitus; Z82.49 Family history of ischemic heart disease and other diseases of the circulatory system
CPT/HCPCS: 43239; 88305; J3010

== ENCOUNTER → 2023-05-22 | Outpatient (CLI) | payer OTHER | LOC: M SLEEP HO 11:03 | PROVIDERS: ATTEND Nurse Practitioner Adult Health | DX: G47.30 Sleep apnea, unspecified (principal) ==

== ENCOUNTER → 2023-07-09 | Outpatient (CLI) | payer OTHER | LOC: M WUC 15:31 | PROVIDERS: ATTEND Pediatrics | DX: R93.89 Abnormal findings on diagnostic imaging of other specified body structures (principal) ==

== ENCOUNTER → 2023-09-26 | Outpatient (REF) | payer OTHER ==
[2023-09-26 19:05] LABS: BASO # 0.1 10^3/uL (0.0-0.2); BASO % 0.8 % (0.0-1.0); EOS # 0.1 10^3/uL (0.0-0.5); HEMATOCRIT 38.8 % (36.0-47.0); HEMOGLOBIN 12.5 g/dl (12.0-15.5); LYMPH # 3.2 10^3/uL (1.5-5.0); LYMPH % 43.7 % (24.0-44.0); MEAN CORPUSCULAR HEMOGLOBIN 30.5 pg (27.0-33.0); MEAN CORPUSCULAR HGB CONC 32.2 g/dl (32.0-36.5); MEAN CORPUSCULAR VOLUME 94.6 fl (80.0-96.0); MONO # 0.5 10^3/uL (0.0-0.8); MONO % 7.1 % (2.0-8.0); NEUTROPHILS # 3.4 10^3/uL (1.5-8.5); PLATELET COUNT, AUTOMATED 226 10^3/uL (150-450); WHITE BLOOD COUNT 7.2 10^3/uL (4.0-10.0)
[2023-09-26 19:16] LABS: ALBUMIN 3.6 G/DL (3.2-5.2); ALKALINE PHOSPHATASE 61 U/L (46-116); ALT/SGPT 24 U/L (7.0-40); AST/SGOT 17 U/L (<34); BILIRUBIN,TOTAL 0.4 MG/DL (0.3-1.2); BLOOD UREA NITROGEN 13 MG/DL (9-23); CALCIUM LEVEL 9.5 MG/DL (8.5-10.1); CARBON DIOXIDE LEVEL 28 MMOL/L (20-31); CHLORIDE LEVEL 104 MMOL/L (98-107); CHOLESTEROL LEVEL 214 MG/DL (<200); CHOLESTEROL RISK RATIO 4.84 (<5); CREATININE FOR GFR 0.63 MG/DL (0.55-1.30); GLOMERULAR FILTRATION RATE > 60.0 (>51); GLUCOSE, FASTING 139 MG/DL (60-100); HDL CHOLESTEROL 44.2 MG/DL (>40); LDL CHOLESTEROL 142.2 MG/DL (<100); NON-HDL-C 169.8 MG/DL; POTASSIUM SERUM 4.7 MMOL/L (3.5-5.1); SODIUM LEVEL 140 MMOL/L (136-145); THYROID STIMULATING HORMONE 0.543 uIU/ML (0.55-4.78); TOTAL PROTEIN 7.5 G/DL (5.7-8.2); TRIGLYCERIDES LEVEL 138 MG/DL (<150)
[2023-09-26 19:30] LABS: HEMOGLOBIN A1c 6.4 % (4.0-6.0)
== END ==
LOC: M LAB REF 16:24
PROVIDERS: ATTEND Physician Assistant
DX: K75.81 Nonalcoholic steatohepatitis (NASH) (principal); E78.5 Hyperlipidemia, unspecified; E11.65 Type 2 diabetes mellitus with hyperglycemia; R53.83 Other fatigue

== ENCOUNTER → 2024-01-07 | Outpatient (REF) | payer OTHER, MEDICAID ==
[2024-01-07 17:43] LABS: CREATININE, URINE 103.8 MG/DL
[2024-01-07 17:44] LABS: MAU/CREAT RATIO 11.5 MCG/MG (0.0-30.0)
== END ==
LOC: M LAB REF 16:44
PROVIDERS: ATTEND Physician Assistant
DX: E11.65 Type 2 diabetes mellitus with hyperglycemia (principal)

== ENCOUNTER 2024-05-04 18:31 | Emergency (ER) | payer MEDICAID, OTHER ==
[~2024-05-04] VITALS: Ht 167.6 cm; Wt 98.0 kg
[2024-05-04 18:31] VITALS: BP 150/86; TEMP 97.2; O2SAT 100
[~2024-05-04 18:31] MED LIST changes: +ONDA-282 PO; -ONDA4TAB6 PO
== END 2024-05-04 19:39 | disposition left against medical advice (07) ==
LOC: M ED 18:31
DX: Z53.21 Procedure and treatment not carried out due to patient leaving prior to being seen by health care provider (principal)

== ENCOUNTER → 2024-05-14 | Outpatient (CLI) | payer OTHER | LOC: M WUC 15:44 | PROVIDERS: ATTEND Nurse Practitioner Family | DX: M79.671 Pain in right foot (principal) ==

== ENCOUNTER → 2024-05-15 | Outpatient (CLI) | payer OTHER | LOC: M RAD 07:33 | PROVIDERS: ATTEND Physician Assistant | DX: M54.6 Pain in thoracic spine (principal); S22.080A Wedge compression fracture of T11-T12 vertebra, initial encounter for closed fracture; M48.061 Spinal stenosis, lumbar region without neurogenic claudication; M99.63 Osseous and subluxation stenosis of intervertebral foramina of lumbar region; Y93.9 Activity, unspecified; Y92.9 Unspecified place or not applicable ==

== ENCOUNTER → 2024-05-29 | Outpatient (CLI) | payer OTHER | LOC: M WHC 09:44 | PROVIDERS: ATTEND Student in an Organized Health Care Education/Training Program | DX: S22.080A Wedge compression fracture of T11-T12 vertebra, initial encounter for closed fracture (principal); W18.30XA Fall on same level, unspecified, initial encounter; Y92.009 Unspecified place in unspecified non-institutional (private) residence as the place of occurrence of the external cause ==

== ENCOUNTER → 2024-06-18 | Outpatient (CLI) | payer OTHER | LOC: M RAD 09:15 | PROVIDERS: ATTEND Student in an Organized Health Care Education/Training Program | DX: S22.080A Wedge compression fracture of T11-T12 vertebra, initial encounter for closed fracture (principal); Y93.9 Activity, unspecified; Y92.9 Unspecified place or not applicable ==

== ENCOUNTER 2024-06-19 13:53 | Emergency (ER) | payer OTHER ==
[~2024-06-19] VITALS: Ht 167.6 cm; Wt 96.0 kg
[2024-06-19] MEDS: KETOROLAC 30 MG/ML 1ML VIAL IV ONE (18:37)
[2024-06-19 18:38] VITALS: TEMP 98
[2024-06-19] MEDS: diazePAM 10MG/2ML SYRINGE IV ONE (18:38)
[2024-06-19 19:18] LABS: BLOOD UREA NITROGEN 16 MG/DL (9-23); CALCIUM LEVEL 9.8 MG/DL (8.5-10.1); CARBON DIOXIDE LEVEL 28 MMOL/L (20-31); CHLORIDE LEVEL 106 MMOL/L (98-107); CREATININE FOR GFR 0.79 MG/DL (0.55-1.30); GLOMERULAR FILTRATION RATE > 60.0 (>51); GLUCOSE, FASTING 124 MG/DL (60-100); POTASSIUM SERUM 4.3 MMOL/L (3.5-5.1); SODIUM LEVEL 139 MMOL/L (136-145)
[2024-06-19 19:22] LABS: VITAMIN B12 LEVEL 704 PG/ML (211-911)
[2024-06-19 20:05] LABS: FOLATE 14.76 NG/ML (>5.4)
[2024-06-19] MEDS: PROMETHAZINE 25MG/ML 1ML VIAL IV ONE (21:18)
[2024-06-19 21:35] VITALS: BP 137/70; O2SAT 98
== END 2024-06-19 21:37 | disposition home or self-care (01) ==
LOC: M ED 13:53
DX: M54.2 Cervicalgia (principal); R20.2 Paresthesia of skin; E11.9 Type 2 diabetes mellitus without complications; E78.5 Hyperlipidemia, unspecified; Z88.5 Allergy status to narcotic agent; Z88.8 Allergy status to other drugs, medicaments and biological substances; Z79.1 Long term (current) use of non-steroidal anti-inflammatories (NSAID); Z79.4 Long term (current) use of insulin; Z79.899 Other long term (current) drug therapy
CPT/HCPCS: 72141; 80048; 82607; 82746; 83735; 96374; 96375; 99284; J1885; J2550; J3360

== ENCOUNTER 2024-07-15 13:47 | Emergency (ER) | payer OTHER ==
[~2024-07-15] VITALS: Ht 167.6 cm; Wt 99.7 kg
[2024-07-15] MEDS ORDERED: ISOVUE-370 76% 100ML VIAL As Ordered ONE (15:02)
[2024-07-15 15:08] LABS: BASO # 0.1 10^3/uL (0.0-0.2); BASO % 0.8 % (0.0-1.0); EOS # 0.1 10^3/uL (0.0-0.5); EOS % 0.9 % (0.0-3.0); HEMATOCRIT 34.6 % (36.0-47.0); HEMOGLOBIN 11.4 g/dl (12.0-15.5); LYMPH # 2.6 10^3/uL (1.5-5.0); LYMPH % 32.9 % (24.0-44.0); MEAN CORPUSCULAR HEMOGLOBIN 29.9 pg (27.0-33.0); MEAN CORPUSCULAR HGB CONC 32.9 g/dl (32.0-36.5); MEAN CORPUSCULAR VOLUME 90.8 fl (80.0-96.0); MONO # 0.7 10^3/uL (0.0-0.8); MONO % 8.8 % (2.0-8.0); NEUTROPHILS # 4.4 10^3/uL (1.5-8.5); NEUTROPHILS % 56.3 % (36.0-66.0); PLATELET COUNT, AUTOMATED 222 10^3/uL (150-450); RED BLOOD COUNT 3.81 10^6/uL (4.00-5.40); WHITE BLOOD COUNT 7.8 10^3/uL (4.0-10.0)
[2024-07-15] MEDS: ACETAMINOPHEN TAB 650MG DOSE (2X325MG) PO ONE (15:13)
[2024-07-15 15:21] LABS: INR 1.09; PROTHROMBIN TIME 13.8 SECONDS (12.5-14.5)
[2024-07-15 15:28] LABS: BLOOD UREA NITROGEN 14 MG/DL (9-23); CALCIUM LEVEL 9.1 MG/DL (8.5-10.1); CARBON DIOXIDE LEVEL 26 MMOL/L (20-31); CHLORIDE LEVEL 107 MMOL/L (98-107); GLOMERULAR FILTRATION RATE > 60.0 (>51); GLUCOSE, FASTING 178 MG/DL (60-100); POTASSIUM SERUM 4.4 MMOL/L (3.5-5.1); SODIUM LEVEL 139 MMOL/L (136-145)
[2024-07-15 17:03] VITALS: BP 114/74; TEMP 96.7; O2SAT 97
== END 2024-07-15 17:15 | disposition home or self-care (01) ==
LOC: M ED 13:47 → EDBD 13:47 → M ED 17:15
DX: S50.02XA Contusion of left elbow, initial encounter (principal); E04.1 Nontoxic single thyroid nodule; Y92.410 Unspecified street and highway as the place of occurrence of the external cause; Y93.9 Activity, unspecified; Y99.9 Unspecified external cause status; V49.50XA Passenger injured in collision with unspecified motor vehicles in traffic accident, initial encounter; E11.9 Type 2 diabetes mellitus without complications; E78.5 Hyperlipidemia, unspecified; Z88.5 Allergy status to narcotic agent; Z88.8 Allergy status to other drugs, medicaments and biological substances; Z79.1 Long term (current) use of non-steroidal anti-inflammatories (NSAID); Z79.4 Long term (current) use of insulin; Z79.899 Other long term (current) drug therapy
CPT/HCPCS: 36415; 70450; 71260; 72125; 72128; 72131; 73080; 74177; 80047; 80048; 85025; 85610; 85730; 93041; 94760; 99285; Q9967

== ENCOUNTER → 2024-08-28 | Outpatient (CLI) | payer OTHER | LOC: M WHC 14:07 | PROVIDERS: ATTEND Student in an Organized Health Care Education/Training Program | DX: E04.1 Nontoxic single thyroid nodule (principal); E07.89 Other specified disorders of thyroid ==

== ENCOUNTER → 2024-09-07 | Outpatient (REF) | payer OTHER | LOC: M LAB REF 12:18 | PROVIDERS: ATTEND Pediatrics | DX: R10.9 Unspecified abdominal pain (principal) ==

== ENCOUNTER 2024-09-11 15:25 | Emergency (ER) | payer OTHER ==
[~2024-09-11] VITALS: Ht 167.6 cm; Wt 92.3 kg
[2024-09-11 17:30] VITALS: TEMP 98.2
[2024-09-11] MEDS: ONDANSETRON 4MG ORAL DISINTEGRATING TAB PO ONE (18:41)
[2024-09-11 18:42] LABS: HEMATOCRIT 36.8 % (36.0-47.0); HEMOGLOBIN 12.3 g/dl (12.0-15.5); MEAN CORPUSCULAR HEMOGLOBIN 30.8 pg (27.0-33.0); MEAN CORPUSCULAR HGB CONC 33.4 g/dl (32.0-36.5); MEAN CORPUSCULAR VOLUME 92.2 fl (80.0-96.0); PLATELET COUNT, AUTOMATED 252 10^3/uL (150-450); RED BLOOD COUNT 3.99 10^6/uL (4.00-5.40); WHITE BLOOD COUNT 9.4 10^3/uL (4.0-10.0)
[2024-09-11] MEDS: MAALOX 30 ML SUSP *UDC PO ONE (18:43)
[2024-09-11] MEDS: KETOROLAC TROMETHAMINE 10 MG TAB PO ONE (18:50)
[2024-09-11 19:10] LABS: LIPASE 35 U/L (12-53)
[2024-09-11 19:15] LABS: ALBUMIN 3.9 G/DL (3.2-5.2); ALKALINE PHOSPHATASE 58 U/L (46-116); ALT/SGPT 29 U/L (7.0-40); AST/SGOT 19 U/L (<34); BILIRUBIN,DIRECT 0.1 MG/DL (<0.4); BILIRUBIN,TOTAL 0.5 MG/DL (0.3-1.2); BLOOD UREA NITROGEN 19 MG/DL (9-23); CALCIUM LEVEL 10.1 MG/DL (8.5-10.1); CARBON DIOXIDE LEVEL 26 MMOL/L (20-31); CHLORIDE LEVEL 108 MMOL/L (98-107); CREATININE FOR GFR 0.61 MG/DL (0.55-1.30); GLOMERULAR FILTRATION RATE > 60.0 (>51); GLUCOSE, FASTING 143 MG/DL (60-100); POTASSIUM SERUM 4.5 MMOL/L (3.5-5.1); SODIUM LEVEL 138 MMOL/L (136-145); TOTAL PROTEIN 7.7 G/DL (5.7-8.2)
[2024-09-11] MEDS: fentaNYL 100 MCG/2 ML INJECTION IV ONE ×2 (20:04→22:22)
[2024-09-12 00:15] VITALS: BP 129/70; O2SAT 99
== END 2024-09-12 05:13 | disposition home or self-care (01) ==
LOC: M ED 15:25
DX: R10.9 Unspecified abdominal pain (principal); R11.2 Nausea with vomiting, unspecified; R19.7 Diarrhea, unspecified; E11.9 Type 2 diabetes mellitus without complications; E28.2 Polycystic ovarian syndrome; Z88.5 Allergy status to narcotic agent; Z88.8 Allergy status to other drugs, medicaments and biological substances; Z79.1 Long term (current) use of non-steroidal anti-inflammatories (NSAID); Z79.4 Long term (current) use of insulin; Z79.899 Other long term (current) drug therapy
CPT/HCPCS: 72148; 74021; 74176; 80048; 80076; 83690; 85027; 96374; 96375; 99284; J3010

== ENCOUNTER → 2024-10-07 | Outpatient (CLI) | payer OTHER ==
[~2024-10-07] MED LIST changes: +LIDOCAINE 1% MDV 20ML VIAL As Ordered ONE
[2024-10-07 12:24] VITALS: TEMP 97.8
[2024-10-07 12:55] VITALS: BP 154/83; O2SAT 100
== END ==
LOC: M IRPRO 12:14
PROVIDERS: ATTEND Otolaryngology
DX: E04.1 Nontoxic single thyroid nodule (principal); L76.32 Postprocedural hematoma of skin and subcutaneous tissue following other procedure

== ENCOUNTER → 2024-11-17 | Outpatient (CLI) | payer OTHER ==
[2024-11-17 10:45] VITALS: TEMP 97.5
[2024-11-17 11:55] VITALS: BP 179/93; O2SAT 99
== END ==
LOC: M IRPRO 10:35
PROVIDERS: ATTEND Otolaryngology
DX: E04.1 Nontoxic single thyroid nodule (principal)

== ENCOUNTER 2025-01-24 11:39 | Observation (INO) | payer OTHER ==
[2025-01-23 19:40] VITALS: BP 152/72; TEMP 97.4; O2SAT 99
[~2025-01-24] VITALS: Ht 167.6 cm; Wt 96.4 kg
[~2025-01-24 11:39] MED LIST changes: -LIDOCAINE 1% MDV 20ML VIAL As Ordered ONE
[2025-01-24] MEDS: diazePAM 10MG/2ML SYRINGE IV ONE (11:55)
[2025-01-24] MEDS ORDERED: ISOVUE-370 76% 100ML VIAL As Ordered ONE (11:58)
[2025-01-24 12:22] LABS: BASO # 0.1 10^3/uL (0.0-0.2); BASO % 0.7 % (0.0-1.0); EOS # 0.1 10^3/uL (0.0-0.5); EOS % 0.6 % (0.0-3.0); HEMATOCRIT 36.8 % (36.0-47.0); HEMOGLOBIN 11.9 g/dl (12.0-15.5); LYMPH # 2.1 10^3/uL (1.5-5.0); MEAN CORPUSCULAR HEMOGLOBIN 30.2 pg (27.0-33.0); MEAN CORPUSCULAR HGB CONC 32.3 g/dl (32.0-36.5); MEAN CORPUSCULAR VOLUME 93.4 fl (80.0-96.0); MONO # 0.6 10^3/uL (0.0-0.8); MONO % 6.7 % (2.0-8.0); NEUTROPHILS % 67.4 % (36.0-66.0); PLATELET COUNT, AUTOMATED 226 10^3/uL (150-450); RED BLOOD COUNT 3.94 10^6/uL (4.00-5.40); WHITE BLOOD COUNT 8.8 10^3/uL (4.0-10.0)
[2025-01-24 12:40] LABS: INR 1.05; PARTIAL THROMBOPLASTIN TIME 24.2 SECONDS (24.8-34.2)
[2025-01-24 12:45] VITALS: BP 165/79; TEMP 98.4; O2SAT 100
[2025-01-24 12:52] LABS: BLOOD UREA NITROGEN 16 MG/DL (9-23); CALCIUM LEVEL 8.9 MG/DL (8.5-10.1); CARBON DIOXIDE LEVEL 26 MMOL/L (20-31); CHLORIDE LEVEL 105 MMOL/L (98-107); GLOMERULAR FILTRATION RATE > 60.0 (>51); GLUCOSE, FASTING 193 MG/DL (60-100); POTASSIUM SERUM 3.9 MMOL/L (3.5-5.1); SODIUM LEVEL 140 MMOL/L (136-145)
[2025-01-24] MEDS: MECLIZINE 25 MG TABLET PO ONE ×2 (13:43→20:16)
[2025-01-24] MEDS ORDERED: GLUCAGON INJ 1MG VIAL SC PRN (15:40)
[2025-01-24] MEDS ORDERED: DEXTROSE 50% 50ML SYRINGE IV PRN (15:40)
[2025-01-24] MEDS ORDERED: MOM 30ML SUSPENSION UDC PO PRN (15:40)
[2025-01-24] MEDS ORDERED: GLUCOSE 4 GM CHEW PO PRN (15:40)
[2025-01-24] MEDS ORDERED: MECLIZINE 25 MG TABLET PO SCH (16:00)
[2025-01-24 16:01] LABS: CHOLESTEROL LEVEL 149 MG/DL (<200); CHOLESTEROL RISK RATIO 3.14 (<5); HDL CHOLESTEROL 47.4 MG/DL (>40); LDL CHOLESTEROL 71.6 MG/DL (<100); NON-HDL-C 101.6 MG/DL; TRIGLYCERIDES LEVEL 150 MG/DL (<150)
[2025-01-24 16:11] LABS: HEMOGLOBIN A1c 8.5 % (4.0-6.0)
[2025-01-24] MEDS ORDERED: ALOG25TA PO (16:38)
[2025-01-24] MEDS ORDERED: GNP1000T11 PO (16:38)
[2025-01-24] MEDS ORDERED: PIOG1TAB37 PO (16:38)
[2025-01-24] MEDS ORDERED: ATOR1TAB21 PO (16:44)
[2025-01-24] MEDS ORDERED: NYST1POW3 TOP (16:44)
[2025-01-24] MEDS ORDERED: HYDR12.55 PO (16:44)
[2025-01-24] MEDS ORDERED: CETI-24 PO (16:44)
[2025-01-24] MEDS ORDERED: NYST100084 TOP (16:44)
[2025-01-24] MEDS ORDERED: HOME MED LIST COMPLETE! XX SCH (16:50)
[2025-01-24] MEDS: ACETAMINOPHEN 325 MG TAB PO PRN (16:54)
[2025-01-24] MEDS: SCOPOLAMINE 1MG TRANSDERMAL PATCH TOP SCH (17:43)
[2025-01-24] MEDS: INSULIN LISPRO (NovoLOG) PER UNIT SC SCH ×2 (18:43→20:17)
[2025-01-24 19:40] VITALS: BP 152/72; TEMP 97.4; O2SAT 99
[2025-01-24] MEDS: DOCUSATE SODIUM 100MG CAPSULE PO SCH (20:16)
[2025-01-24] MEDS: ONDANSETRON 4MG 2ML VIAL IV ONE (20:37)
[2025-01-24] MEDS: NYSTATIN 100,000 UNITS/GM TOPICAL PWD 15GM TOP SCH (20:37)
[2025-01-24 22:04] VITALS: O2SAT 95
[2025-01-25 04:00] VITALS: BP 109/59; TEMP 97.4; O2SAT 100
[2025-01-25 06:51] LABS: HEMATOCRIT 35.4 % (36.0-47.0); HEMOGLOBIN 11.4 g/dl (12.0-15.5); MEAN CORPUSCULAR HGB CONC 32.2 g/dl (32.0-36.5); MEAN CORPUSCULAR VOLUME 93.2 fl (80.0-96.0); PLATELET COUNT, AUTOMATED 229 10^3/uL (150-450); WHITE BLOOD COUNT 6.5 10^3/uL (4.0-10.0)
[2025-01-25 07:20] LABS: BLOOD UREA NITROGEN 12 MG/DL (9-23); CALCIUM LEVEL 8.8 MG/DL (8.5-10.1); CARBON DIOXIDE LEVEL 27 MMOL/L (20-31); CHLORIDE LEVEL 106 MMOL/L (98-107); GLOMERULAR FILTRATION RATE > 60.0 (>51); GLUCOSE, FASTING 128 MG/DL (60-100); POTASSIUM SERUM 4.3 MMOL/L (3.5-5.1); SODIUM LEVEL 142 MMOL/L (136-145)
[2025-01-25] MEDS: RIVAROXABAN 10MG TAB (XARELTO) PO SCH (08:04)
[2025-01-25] MEDS: NORCO, ANEXSIA 5/325MG TABLET (HYDROcodone/ACETAMINOPHEN) PO PRN (10:07)
[2025-01-25] MEDS ORDERED: MECLIZINE 25 MG TABLET PO PRN (11:25)
[2025-01-25 12:00] VITALS: BP 142/73; TEMP 97.6; O2SAT 98
[2025-01-25] MEDS: METOCLOPRAMIDE 5 MG TAB PO SCH (12:12)
[2025-01-25 20:00] VITALS: BP 108/55; TEMP 97.5; O2SAT 96
[2025-01-25] MEDS: ATORVASTATIN 20 MG TAB PO SCH (20:44)
[2025-01-25 20:48] VITALS: O2SAT 89
[2025-01-25 20:52] VITALS: O2SAT 100
[2025-01-26 04:00] VITALS: BP 117/66; TEMP 98.3; O2SAT 97
[2025-01-26] MEDS: ONDANSETRON 4MG 2ML VIAL IV ONE (04:35)
[2025-01-26] MEDS ORDERED: METOCLOPRAMIDE INJ 10MG/2ML VIAL IV SCH (05:00)
[2025-01-26] MEDS: METOCLOPRAMIDE 5 MG TAB PO SCH (09:14)
[2025-01-26] MEDS: diazePAM 5MG TABLET PO PRN (11:39)
[2025-01-26 12:00] VITALS: BP 116/57; TEMP 97.8; O2SAT 100
[2025-01-26 19:25] VITALS: BP 124/58; TEMP 98.2; O2SAT 93
[2025-01-27 01:06] VITALS: O2SAT 94
[2025-01-27] MEDS: IBUPROFEN 600MG TAB PO ONE (02:33)
[2025-01-27] MEDS: METHOCARBAMOL 1,000 MG/10 ML VIAL IV ONE (03:27)
[2025-01-27] MEDS: KETOROLAC 30 MG/ML 1ML VIAL IV ONE (03:27)
[2025-01-27 03:40] VITALS: BP 125/69; TEMP 97.8; O2SAT 94
[2025-01-27] MEDS: NORCO, ANEXSIA 5/325MG TABLET (HYDROcodone/ACETAMINOPHEN) PO PRN (08:39)
[2025-01-27 08:45] VITALS: BP_SYST 121; BP_SYST 128; BP_SYST 131; BP_DIAS 66; BP_DIAS 67; BP_DIAS 69
[2025-01-27 12:00] VITALS: BP 129/61; TEMP 97.3; O2SAT 98
[2025-01-27] MEDS ORDERED: MAALOX 30 ML SUSP *UDC PO PRN (18:20)
[2025-01-27 18:28] LABS: HEMATOCRIT 34.9 % (36.0-47.0); HEMOGLOBIN 11.6 g/dl (12.0-15.5); MEAN CORPUSCULAR HEMOGLOBIN 30.2 pg (27.0-33.0); MEAN CORPUSCULAR HGB CONC 33.2 g/dl (32.0-36.5); MEAN CORPUSCULAR VOLUME 90.9 fl (80.0-96.0); PLATELET COUNT, AUTOMATED 231 10^3/uL (150-450); RED BLOOD COUNT 3.84 10^6/uL (4.00-5.40); WHITE BLOOD COUNT 6.9 10^3/uL (4.0-10.0)
[2025-01-27 18:53] LABS: HEMATOCRIT 33.4 % (36.0-47.0); HEMOGLOBIN 11.1 g/dl (12.0-15.5); MEAN CORPUSCULAR HEMOGLOBIN 30.7 pg (27.0-33.0); MEAN CORPUSCULAR HGB CONC 33.2 g/dl (32.0-36.5); MEAN CORPUSCULAR VOLUME 92.5 fl (80.0-96.0); PLATELET COUNT, AUTOMATED 211 10^3/uL (150-450); RED BLOOD COUNT 3.61 10^6/uL (4.00-5.40); WHITE BLOOD COUNT 6.9 10^3/uL (4.0-10.0)
[2025-01-27 19:08] LABS: D-DIMER QUANT 0.37 ug/mL (<0.5); INR 1.3; PARTIAL THROMBOPLASTIN TIME 30.3 SECONDS (24.8-34.2); PROTHROMBIN TIME 16.5 SECONDS (12.5-14.5)
[2025-01-27 19:20] LABS: CK-MB VALUE MASS < 1.0 NG/ML (<3.6)
[2025-01-27 19:21] LABS: ALBUMIN 3.3 G/DL (3.2-5.2); ALKALINE PHOSPHATASE 52 U/L (35-104); ALT/SGPT 35 U/L (7.0-40); AST/SGOT 24 U/L (<34); BILIRUBIN,TOTAL 0.3 MG/DL (0.3-1.2); BLOOD UREA NITROGEN 18 MG/DL (9-23); CALCIUM LEVEL 9.1 MG/DL (8.5-10.1); CARBON DIOXIDE LEVEL 28 MMOL/L (20-31); CHLORIDE LEVEL 106 MMOL/L (98-107); CPK CREATINE PHOSPHOKINASE 36 U/L (34-145); CREATININE FOR GFR 0.66 MG/DL (0.55-1.30); GLOMERULAR FILTRATION RATE > 60.0 (>51); GLUCOSE, FASTING 214 MG/DL (60-100); MAGNESIUM LEVEL 1.8 MG/DL (1.8-2.4); MB/CK RELATIVE INDEX 2.77 (< OR =4); SODIUM LEVEL 141 MMOL/L (136-145); TOTAL PROTEIN 6.8 G/DL (5.7-8.2)
[2025-01-27 19:56] VITALS: BP 144/72; TEMP 98.4; O2SAT 96
[2025-01-27 21:35] LABS: CK-MB VALUE MASS < 1.0 NG/ML (<3.6)
[2025-01-27 21:36] LABS: CPK CREATINE PHOSPHOKINASE 35 U/L (34-145); MB/CK RELATIVE INDEX 2.85 (< OR =4)
[2025-01-28 04:51] VITALS: BP 127/74; TEMP 98.2; O2SAT 96
[2025-01-28] MEDS ORDERED: HYDR-3715 PO (11:53)
[2025-01-28] MEDS ORDERED: TRAN1DIS4 TOP (11:53)
[2025-01-28 12:00] VITALS: BP 133/63; TEMP 97.5; O2SAT 90
== END 2025-01-28 15:16 | disposition home or self-care (01) ==
LOC: M ED 11:39 → EDBD 11:39 → M ED INP 15:36 → INTOOBSV 15:36 → M MS4PR 19:44
PROVIDERS: ADMIT Student in an Organized Health Care Education/Training Program; ATTEND Student in an Organized Health Care Education/Training Program
DX: R42 Dizziness and giddiness (principal); M54.12 Radiculopathy, cervical region; E11.43 Type 2 diabetes mellitus with diabetic autonomic (poly)neuropathy; I10 Essential (primary) hypertension; R07.1 Chest pain on breathing; E78.5 Hyperlipidemia, unspecified; G47.33 Obstructive sleep apnea (adult) (pediatric); F32.A Depression, unspecified; T45.0X5A Adverse effect of antiallergic and antiemetic drugs, initial encounter; R29.6 Repeated falls; W07.XXXA Fall from chair, initial encounter; Y92.230 Patient room in hospital as the place of occurrence of the external cause; Z87.442 Personal history of urinary calculi; Z90.89 Acquired absence of other organs; Z90.79 Acquired absence of other genital organ(s); Z98.890 Other specified postprocedural states; Z88.5 Allergy status to narcotic agent; Z88.8 Allergy status to other drugs, medicaments and biological substances; Z79.899 Other long term (current) drug therapy; Z79.4 Long term (current) use of insulin
CPT/HCPCS: 36415; 70450; 70496; 70498; 70544; 70551; 71045; 80047; 80048; 80053; 80061; 82550; 82553; 83036; 83735; 83880; 84484; 85025; 85027; 85379; 85610; 85730; 93005; 93041; 93306; 94760; 96374; 96375; 96376; 97116; 97161; 97530; 99285; J1815; J1885; J2405; J2800; J3360; Q9967

== ENCOUNTER 2025-01-30 12:28 | Emergency (ER) | payer OTHER ==
[~2025-01-30] VITALS: Ht 167.6 cm; Wt 97.2 kg
[~2025-01-30 12:28] MED LIST changes: +ALOG25TA PO; +ATOR1TAB21 PO; +CETI-24 PO; +GNP1000T11 PO; +HYDR-3715 PO; +HYDR12.55 PO; +NYST100084 TOP; +NYST1POW3 TOP; +PIOG1TAB37 PO; +TRAN1DIS4 TOP
[2025-01-30 15:17] LABS: ALBUMIN 3.8 G/DL (3.2-5.2); ALKALINE PHOSPHATASE 56 U/L (35-104); ALT/SGPT 38 U/L (7.0-40); AST/SGOT 21 U/L (<34); BILIRUBIN,DIRECT 0.1 MG/DL (<0.4); BILIRUBIN,TOTAL 0.4 MG/DL (0.3-1.2); BLOOD UREA NITROGEN 9 MG/DL (9-23); CALCIUM LEVEL 9.1 MG/DL (8.5-10.1); CARBON DIOXIDE LEVEL 28 MMOL/L (20-31); CHLORIDE LEVEL 106 MMOL/L (98-107); CREATININE FOR GFR 0.51 MG/DL (0.55-1.30); GLOMERULAR FILTRATION RATE > 60.0 (>51); GLUCOSE, FASTING 138 MG/DL (60-100); POTASSIUM SERUM 4.6 MMOL/L (3.5-5.1); SODIUM LEVEL 142 MMOL/L (136-145); TOTAL PROTEIN 7.5 G/DL (5.7-8.2)
[2025-01-30 15:23] LABS: INR 1.06; PROTHROMBIN TIME 14.2 SECONDS (12.5-14.5)
[2025-01-30 15:42] LABS: BASO # 0.1 10^3/uL (0.0-0.2); BASO % 0.6 % (0.0-1.0); EOS # 0.1 10^3/uL (0.0-0.5); EOS % 0.8 % (0.0-3.0); HEMATOCRIT 36.9 % (36.0-47.0); LYMPH # 3.2 10^3/uL (1.5-5.0); LYMPH % 37.7 % (24.0-44.0); MEAN CORPUSCULAR HEMOGLOBIN 30.3 pg (27.0-33.0); MEAN CORPUSCULAR HGB CONC 32.5 g/dl (32.0-36.5); MEAN CORPUSCULAR VOLUME 93.2 fl (80.0-96.0); MONO # 0.6 10^3/uL (0.0-0.8); MONO % 6.6 % (2.0-8.0); NEUTROPHILS # 4.6 10^3/uL (1.5-8.5); NEUTROPHILS % 54.1 % (36.0-66.0); PLATELET COUNT, AUTOMATED 251 10^3/uL (150-450); RED BLOOD COUNT 3.96 10^6/uL (4.00-5.40); WHITE BLOOD COUNT 8.5 10^3/uL (4.0-10.0)
[2025-01-30] MEDS: ONDANSETRON 4MG 2ML VIAL IV ONE (16:33)
[2025-01-30] MEDS ORDERED: ISOVUE-370 76% 100ML VIAL As Ordered ONE (16:38)
[2025-01-30] MEDS ORDERED: OMEP40CA4 PO (16:42)
[2025-01-30] MEDS: ACETAMINOPHEN *IV* 1,000 MG in IV 1 EA IV ONE (17:02)
[2025-01-30 18:45] VITALS: BP 137/69; O2SAT 97
[2025-01-30] MEDS ORDERED: SUCR1SS PO (18:47)
[2025-01-30] MEDS ORDERED: OMEP1CAP73 PO (18:47)
[2025-01-30 19:01] VITALS: TEMP 97.4
== END 2025-01-30 19:01 | disposition home or self-care (01) ==
LOC: M ED 12:28
DX: K29.70 Gastritis, unspecified, without bleeding (principal); K92.0 Hematemesis; K21.9 Gastro-esophageal reflux disease without esophagitis; E78.5 Hyperlipidemia, unspecified; E28.2 Polycystic ovarian syndrome; G47.33 Obstructive sleep apnea (adult) (pediatric); Z88.5 Allergy status to narcotic agent; Z88.8 Allergy status to other drugs, medicaments and biological substances; Z79.1 Long term (current) use of non-steroidal anti-inflammatories (NSAID); Z79.4 Long term (current) use of insulin; Z79.899 Other long term (current) drug therapy
CPT/HCPCS: 74174; 80053; 82248; 85025; 85610; 96374; 96375; 99284; J0131; J2405; Q9967

== ENCOUNTER → 2025-03-15 | Outpatient (CLI) | payer OTHER ==
[~2025-03-15] MED LIST changes: +OMEP1CAP73 PO; +OMEP40CA4 PO; +SUCR1SS PO
[2025-03-15 12:47] LABS: HEMATOCRIT 36.4 % (36.0-47.0); HEMOGLOBIN 11.7 g/dl (12.0-15.5); MEAN CORPUSCULAR HEMOGLOBIN 30.5 pg (27.0-33.0); MEAN CORPUSCULAR HGB CONC 32.1 g/dl (32.0-36.5); PLATELET COUNT, AUTOMATED 238 10^3/uL (150-450); RED BLOOD COUNT 3.83 10^6/uL (4.00-5.40); WHITE BLOOD COUNT 5.5 10^3/uL (4.0-10.0)
[2025-03-15 12:51] LABS: BLOOD UREA NITROGEN 14 MG/DL (9-23); CALCIUM LEVEL 9.2 MG/DL (8.5-10.1); CARBON DIOXIDE LEVEL 30 MMOL/L (20-31); CHLORIDE LEVEL 106 MMOL/L (98-107); CREATININE FOR GFR 0.57 MG/DL (0.55-1.30); GLOMERULAR FILTRATION RATE > 90.0 (>51); GLUCOSE, FASTING 161 MG/DL (60-100); POTASSIUM SERUM 4.7 MMOL/L (3.5-5.1); SODIUM LEVEL 143 MMOL/L (136-145)
[2025-03-15 13:16] LABS: HEMOGLOBIN A1c 7.7 % (4.0-6.0)
== END ==
LOC: M WUC 09:57
PROVIDERS: ATTEND Physician Assistant
DX: E11.65 Type 2 diabetes mellitus with hyperglycemia (principal)

== ENCOUNTER → 2025-06-16 | Outpatient (REF) | payer OTHER ==
[~2025-06-16] MED LIST changes: -FLOM0.4C39 PO; +HYDR-3713 PO; +TAMS-18 PO
[2025-06-16 19:23] LABS: MALB URINE SIEMENS 31.0 MG/L
[2025-06-16 19:37] LABS: CREATININE, URINE 325.6 MG/DL; MAU/CREAT RATIO 9.5 MCG/MG (0.0-30.0)
== END ==
LOC: M LAB REF 17:22
PROVIDERS: ATTEND Nurse Practitioner Family
DX: E11.65 Type 2 diabetes mellitus with hyperglycemia (principal)

== ENCOUNTER → 2025-08-18 | Outpatient (REF) | payer OTHER ==
[~2025-08-18] MED LIST changes: -ACE65ERTAB PO; +ACET-1593 PO
== END ==
LOC: M LAB REF 14:30
PROVIDERS: ATTEND Nurse Practitioner Family
DX: N39.0 Urinary tract infection, site not specified (principal)

== ENCOUNTER 2025-08-23 22:37 | Emergency (ER) | payer OTHER ==
[~2025-08-23] VITALS: Ht 167.6 cm; Wt 94.1 kg
[2025-08-23 22:40] VITALS: BP 146/91; TEMP 98.8; O2SAT 100
== END 2025-08-23 22:52 | disposition left against medical advice (07) ==
LOC: M ED 22:37
DX: Z53.21 Procedure and treatment not carried out due to patient leaving prior to being seen by health care provider (principal)

== ENCOUNTER → 2025-08-31 | Outpatient (REF) | payer OTHER ==
[2025-08-31 18:01] LABS: MALB URINE SIEMENS 63.0 MG/L
[2025-08-31 18:13] LABS: CREATININE, URINE 401.3 MG/DL; MAU/CREAT RATIO 15.6 MCG/MG (0.0-30.0)
[2025-08-31 18:55] LABS: CALCIUM LEVEL 9.1 MG/DL (8.5-10.1); CARBON DIOXIDE LEVEL 28 MMOL/L (20-31); CHLORIDE LEVEL 100 MMOL/L (98-107); CREATININE FOR GFR 0.59 MG/DL (0.55-1.30); GLOMERULAR FILTRATION RATE > 90.0 (>51); MAGNESIUM LEVEL 1.9 MG/DL (1.8-2.4); POTASSIUM SERUM 5.0 MMOL/L (3.5-5.1); SODIUM LEVEL 137 MMOL/L (136-145)
== END ==
LOC: M LAB REF 16:56
PROVIDERS: ATTEND Nurse Practitioner Family
DX: E11.65 Type 2 diabetes mellitus with hyperglycemia (principal); N30.90 Cystitis, unspecified without hematuria

== ENCOUNTER → 2025-09-15 | Outpatient (REF) | payer OTHER, MEDICAID | LOC: M LAB REF 17:11 | PROVIDERS: ATTEND Nurse Practitioner Family | DX: J00 Acute nasopharyngitis [common cold] (principal) ==

== ENCOUNTER → 2025-11-03 | Outpatient (REF) | payer OTHER ==
[~2025-11-03] MED LIST changes: +ACET-1387 PO; -ACET-1593 PO
== END ==
LOC: M LAB REF 21:22
DX: R30.0 Dysuria (principal)

== ENCOUNTER → 2025-11-04 | Outpatient (REF) | payer OTHER ==
[2025-11-04 18:07] LABS: APPEARANCE, URINE CLOUDY (CLEAR); BACTERIA, URINE AUTO 1+ (NEGATIVE); BILIRUBIN, URINE AUTO NEGATIVE (NEGATIVE); BLOOD, URINE BLOOD 1+ (NEGATIVE); GLUCOSE, URINE (UA) AUTO 1+ mg/dL (NEGATIVE); KETONE, URINE AUTO NEGATIVE (NEGATIVE); LEUKOCYTE ESTERASE, URINE AUTO 2+ (NEGATIVE); MUCUS, URINE SMALL (NEGATIVE); NITRITE, URINE AUTO NEGATIVE (NEGATIVE); PROTEIN, URINE AUTO 1+ mg/dL (NEGATIVE); RBC, URINE AUTO 2 /HPF (0-3); SPECIFIC GRAVITY URINE AUTO 1.021 (1.002-1.035); SQUAMOUS EPITHELIAL CELL UR AU 1 /HPF (0-6); UROBILINOGEN, URINE AUTO 0.2 mg/dL (0.0-2.0); WBC, URINE AUTO 91 /HPF (0-3)
== END ==
LOC: M SMT 16:51
PROVIDERS: ATTEND Physician Assistant
DX: N39.0 Urinary tract infection, site not specified (principal)